=== PATIENT | female | born 1935 | race Caucasian/White ===

== ENCOUNTER 2016-11-28 07:50 | Day surgery (SDC) | payer OTHER ==
[2016-11-27 15:20] VITALS: BMI 24.7
[~2016-11-28 07:50] MED LIST: TOBRAMYCIN/DEXAMETHASONE OPHTH. OINTMENT 1 TUBE TP ONE
[2016-11-28] MEDS ORDERED: MOXIFLOXACIN HCL 0.5% OPHTHALMIC 3 ML BOTTLE ONE (08:18)
[2016-11-28] MEDS ORDERED: PHENYLEPHRINE 2.5% OPHTH SOLN 15 ML BOTTLE ONE (08:18)
[2016-11-28] MEDS ORDERED: CYCLOPENTOLATE HCL 1% OPHTH SOLN 2 ML BOTTLE ONE (08:18)
[2016-11-28 08:20] VITALS: TEMP 97.6
[2016-11-28] MEDS: TROPICAMIDE 1% OPHTH SOLN 15 ML BOTTLE OP SCH ×3 (08:25→08:40)
[2016-11-28] MEDS: MOXIFLOXACIN HCL 0.5% OPHTHALMIC 3 ML BOTTLE OP SCH ×3 (08:25→08:40)
[2016-11-28] MEDS: PHENYLEPHRINE 2.5% OPHTH SOLN 15 ML BOTTLE OP SCH ×3 (08:25→08:40)
[2016-11-28] MEDS: CYCLOPENTOLATE HCL 1% OPHTH SOLN 2 ML BOTTLE OP SCH ×3 (08:25→08:40)
[2016-11-28] MEDS ORDERED: TETRACAINE 0.5% OPHTH SOLN 2 ML BOTTLE OD ONE (09:04)
[2016-11-28] MEDS ORDERED: PROPOFOL 20 ML ONE (09:05)
[2016-11-28] MEDS ORDERED: BUPIVACAINE HCL/PF 0.75% 10 ML VIAL RB ONE (09:07)
[2016-11-28] MEDS ORDERED: LIDOCAINE HCL/PF 2% SDV 5ML VIAL INF ONE (09:07)
[2016-11-28] MEDS ORDERED: POVIDONE-IODINE 5% OPHTHALMIC PREP 30 ML SOLUTION OD ONE (09:10)
[2016-11-28] MEDS ORDERED: LIDOCAINE HCL 1% PRESERVATIVE FREE - 30ML VIAL IO ONE (09:17)
[2016-11-28] MEDS ORDERED: BSS (NA/CA/MG/K) BALANCED SALT SOLUTION OPHTH SOLN 15 ML BOTTLE OD ONE (09:17)
[2016-11-28] MEDS ORDERED: CHONDROITIN SU A/HYALUR SOD 1 KIT IO ONE (09:17)
[2016-11-28] MEDS ORDERED: EPINEPHrine/PF 1 MG/1 ML (1:1,000) AMPULE SQ ONE ×2 (09:23→09:39)
[2016-11-28] MEDS ORDERED: EPINEPHrine/PF 1 MG/1 ML (1:1,000) AMPULE ONE (09:37)
[2016-11-28] MEDS ORDERED: TOBRAMYCIN/DEXAMETHASONE OPHTH. OINTMENT 1 TUBE TP ONE (09:46)
[2016-11-28 11:08] VITALS: BP 139/71; PULSE 69
--- NOTE | 2016-11-28 16:57 | OP ---
DATE OF OPERATION: 11/28/2016 SURGEON: Mir Reynolds MD PREOPERATIVE DIAGNOSIS: Cataract, right eye. OPERATION: Phacoemulsification and intraocular lens implantation, right eye. POSTOPERATIVE DIAGNOSIS: Cataract, right eye. ANESTHESIA: Local with intravenous sedation. COMPLICATIONS: None. BLOOD LOSS: None. SPECIMEN: None. BRIEF HISTORY: The patient is an 80-year-old woman with a past medical history of diabetes, who presented with decreased vision in the right eye down to 20/200 due to a 3+ nuclear sclerotic lens with vacuoles. After the risks, benefits, and alternatives to cataract surgery were discussed with the patient, she consented to surgery for the right eye. DESCRIPTION OF PROCEDURE: The patient was brought to the operating room and administered a retrobulbar block after receiving intravenous sedation. She was then prepped and draped in the usual sterile fashion, and an eyelid speculum was inserted in the right eye. A paracentesis was made, and the anterior chamber was inflated with nonpreserved lidocaine. This was followed by injection of Viscoat. A groove was made in the temporal clear cornea which was tunneled forward with a crescent blade. The anterior chamber was entered with a 2.75 keratome. The cystotome was used to make an incision in the center of the capsule, and a continuous curvilinear capsulorrhexis was created. The lens was hydrodissected until it was found to rotate freely within the capsular bag. Phacoemulsification was then used to remove the lens in its entirety. Irrigation and aspiration were used to remove residual cortical material. The anterior chamber and capsular bag were re-inflated with Provisc, and a 23.0-diopter [id number] AcrySof intraocular lens was injected into the capsular bag using the Blandon injector. The lens was dialed into place using a Sinskey hook. Irrigation and aspiration were used to remove residual Viscoelastic. The wound was stromally hydrated until it was found to be watertight and the eye was at an appropriate pressure. The eyelid speculum was removed from the eye, and TobraDex ointment and a patch and shield were placed over the right eye. The patient was transferred to the recovery room in stable condition and will follow up tomorrow. Rody KYLE/[id number] MTDD
== END 2016-11-28 11:08 | disposition home or self-care (01) ==
LOC: JASU-SURG 07:50
PROVIDERS: ATTEND Ophthalmology
PROC: 08RJ3JZ Replacement of Right Lens with Synthetic Substitute, Percutaneous Approach (ICD-10-PCS; principal; 2016-11-28 09:00)
DX: H25.11 Age-related nuclear cataract, right eye (principal)

== ENCOUNTER 2016-12-20 15:32 | Emergency (ER) | payer OTHER ==
[2016-12-20 16:01] VITALS: BMI 27.1
--- NOTE | 2016-12-20 17:19 | PDOC ---
History of Present Illness - General Chief Complaint: Pain Stated Complaint: CHEST PAIN Time Seen by Provider: 12/20/16 17:18 Past History - Past Medical History Allergies/Adverse Reactions: Allergies Allergy/AdvReac Type Severity Reaction Status Date / Time No Known Drug Allergies Allergy Verified 11/28/16 08:22 Home Medications: Ambulatory Orders Lisinopril [Prinivil] 20 mg PO DAILY #0 tablet 06/20/12 Aspirin [ASA -] 81 mg PO DAILY 05/06/14 Paroxetine HCl [Paxil -] 10 mg PO DAILY 01/17/15 Levetiracetam [Keppra -] 500 mg PO BID #60 tablet 01/20/15 Metoprolol Tartrate 25 mg PO DAILY 12/12/15 Calcium 500Mg/Vit-D 200 Units [Os-Ramin 500+D -] 1 tab PO BID tab 12/15/15 Loratadine [Claritin -] 10 mg PO DAILY tablet 12/15/15 Methimazole [Tapazole -] 5 mg PO DAILY 11/28/16 Sitagliptin Phos/Metformin HCl [Janumet 50-500 mg Tablet] 1 each PO BID Anemia: No Asthma: No Cardiac Disorders: No CVA: No COPD: No CHF: No Dementia: Yes Diabetes: Yes (pre) GI Disorders: No Disorders: No HTN: Yes Hypercholesterolemia: No Liver Disease: No Seizures: Yes (, 5 YEARS AGO) Thyroid Disease: No - Surgical History Abdominal Surgery: Yes Appendectomy: Yes Cardiac Surgery: No Cholecystectomy: No Lung Surgery: No Neurologic Surgery: No Orthopedic Surgery: No - Psycho/Social/Smoking Cessation Hx Anxiety: No Suicidal Ideation: No Smoking Status: No Smoking History: Never smoked Have you smoked in the past 12 months: No Number of Cigarettes Smoked Daily: 0 Cigars Per Day: 0 Information on smoking cessation initiated: No Hx Alcohol Use: No Drug/Substance Use Hx: No Substance Use Type: None Hx Substance Use Treatment: No *Physical Exam - Vital Signs Last Vital Signs Temp Pulse Resp BP Pulse Ox 98.4 F 71 20 133/81 96 12/20/16 16:04 12/20/16 15:59 12/20/16 15:59 12/20/16 15:59 12/20/16 15:59
[2016-12-20] MEDS ORDERED: SUCRALFATE 1 GM TABLET (FP) PO ONE (17:33)
[2016-12-20] MEDS ORDERED: FAMOTIDINE 20 MG/50 ML IVPB 50 ML IVPB ONE ×2 (17:33→18:05)
[2016-12-20] MEDS ORDERED: SODIUM CHLORIDE 500 ML IV STA (17:33)
[2016-12-20] MEDS ORDERED: MAG HYDROX/AL HYDROX/SIMETH 30 ML UNIT-DOSE CUP PO ONE (17:33)
--- NOTE | 2016-12-20 17:59 | PDOC ---
History of Present Illness - General Chief Complaint: Pain Stated Complaint: CHEST PAIN Time Seen by Provider: 12/20/16 17:18 History Source: Patient, Family - History of Present Illness Timing/Duration: reports: intermittent Abdominal Pain Onset Location: reports: epigastric Past History - Past Medical History Allergies/Adverse Reactions: Allergies Allergy/AdvReac Type Severity Reaction Status Date / Time No Known Drug Allergies Allergy Verified 11/28/16 08:22 Home Medications: Ambulatory Orders Lisinopril [Prinivil] 20 mg PO DAILY #0 tablet 06/20/12 Aspirin [ASA -] 81 mg PO DAILY 05/06/14 Paroxetine HCl [Paxil -] 10 mg PO DAILY 01/17/15 Levetiracetam [Keppra -] 500 mg PO BID #60 tablet 01/20/15 Metoprolol Tartrate 25 mg PO DAILY 12/12/15 Calcium 500Mg/Vit-D 200 Units [Os-Ramin 500+D -] 1 tab PO BID tab 12/15/15 Loratadine [Claritin -] 10 mg PO DAILY tablet 12/15/15 Methimazole [Tapazole -] 5 mg PO DAILY 11/28/16 Sitagliptin Phos/Metformin HCl [Janumet 50-500 mg Tablet] 1 each PO BID Anemia: No Asthma: No Cardiac Disorders: No CVA: No COPD: No CHF: No Dementia: Yes Diabetes: Yes (pre) GI Disorders: No Disorders: No HTN: Yes Hypercholesterolemia: No Liver Disease: No Seizures: Yes (, 5 YEARS AGO) Thyroid Disease: No - Surgical History Abdominal Surgery: Yes Appendectomy: Yes Cardiac Surgery: No Cholecystectomy: No Lung Surgery: No Neurologic Surgery: No Orthopedic Surgery: No - Psycho/Social/Smoking Cessation Hx Anxiety: No Suicidal Ideation: No Smoking Status: No Smoking History: Never smoked Have you smoked in the past 12 months: No Number of Cigarettes Smoked Daily: 0 Cigars Per Day: 0 Information on smoking cessation initiated: No Hx Alcohol Use: No Drug/Substance Use Hx: No Substance Use Type: None Hx Substance Use Treatment: No Review of Systems - Review of Systems Constitutional: No: Chills, Fever Respiratory: No: Cough, Shortness of Breath Cardiac (ROS): No: Lightheadedness, Palpitations ABD/GI: No: Constipated, Diarrhea, Nausea, Rectal Bleeding, Vomiting, Tarry Stools : No: Dysuria *Physical Exam - Vital Signs Last Vital Signs Temp Pulse Resp BP Pulse Ox 98.4 F 71 20 133/81 96 12/20/16 16:04 12/20/16 15:59 12/20/16 15:59 12/20/16 15:59 12/20/16 15:59 - Physical Exam General Appearance: Yes: Appropriately Dressed. No: Apparent Distress HEENT: positive: Normal Voice Neck: positive: Supple Respiratory/Chest: positive: Lungs Clear, Normal Breath Sounds. negative: Respiratory Distress Cardiovascular: positive: Regular Rate, S1, S2 Gastrointestinal/Abdominal: positive: Normal Bowel Sounds, Soft. negative: Tender, Distended, Guarding, Rebound Musculoskeletal: negative: CVA Tenderness Extremity: positive: Normal Inspection Integumentary: positive: Dry, Warm Neurologic: positive: Fully Oriented, Alert, Normal Mood/Affect Heart Score/ECG Review - ECG Intrepretation Comment:: 12/20/16 18:39 Twelve-lead EKG was performed and reviewed by me. There is normal sinus rhythm with a normal rate. The axis is normal. The intervals are normal. There are no ST or T wave abnormalities. Impression: Normal twelve-lead EKG ED Treatment Course - LABORATORY CBC & Chemistry Diagram: 12/20/16 18:10 12/20/16 18:10 - RADIOLOGY Radiology Studies Ordered: Category Date Time Status CHEST X-RAY PORTABLE* [RAD] Stat Radiology 12/20/16 17:32 Ordered Medical Decision Making - Medical Decision Making 12/20/16 17:55 81-year-old female, history of seizures, hypertension, diabetes, gastritis and ulcer, brought in by family for abdominal pain. Patient reports intermittent upper abdominal pain radiating to substernal area and possibly to throat x several days, worse with po intake. Denies shortness of breath, diaphoresis, nausea or vomiting. No acute change in bowel movements, melena, bright red blood per rectum, or dysuria. Family states patient is possibly on medication for her GERD, but does not remember name but states pt usually takes all her meds See exam Possibly gastritis given a/w food, not great story for ACS, less likely dissection or PE -GI cocktail -ekg -cxr -labs -reassess 12/20/16 17:58 12/20/16 18:39 12/20/16 18:39 Signed out to JORDEN Austin pending labs and reassessment *DC/Admit/Observation/Transfer Diagnosis at time of Disposition: Gastritis - Discharge Dispostion Disposition: HOME Condition at time of disposition: Stable - Referrals Referrals: Justo Candelario [Primary Care Provider] - Chi Padilla MD [Staff Physician] - - Patient Instructions Printed Discharge Instructions: Gastritis Additional Instructions: Please follow up with your physician and the Financial Services Counselor listed on your discharge Dr. Padilla. Return to the ER for severe/persistent/worsening symptoms Print Language: LAO
[2016-12-20] MEDS ORDERED: SUCRALFATE 1 GM TABLET (FP) ONE (18:04)
[2016-12-20] MEDS ORDERED: MAG HYDROX/AL HYDROX/SIMETH 30 ML UNIT-DOSE CUP ONE (18:08)
[2016-12-20 18:25] LABS: BASOPHIL 0.7 % (0-2.0); MCH 28.8 pg (25.7-33.7); MCHC 33.7 g/dl (32.0-36.0); MEAN CELL VOLUME 85.7 fl (80-96); MEAN PLT VOLUME 8.4 fl (7.5-11.1); NEUTROPHILS 54.5 % (42.8-82.8); PLATELET COUNT 191 K/MM3 (134-434); RDW 15.1 % (11.6-15.6); WHITE BLOOD COUNT 8.3 K/mm3 (4.0-10.0)
[2016-12-20 18:43] LABS: URINE APPEARANCE CLEAR; URINE BILIRUBIN NEGATIVE (NEGATIVE); URINE BLOOD NEGATIVE (NEGATIVE); URINE COLOR STRAW; URINE GLUCOSE (UA) NEGATIVE (NEGATIVE); URINE KETONE NEGATIVE (NEGATIVE); URINE LEUK ESTERASE NEGATIVE (NEGATIVE); URINE NITRITE NEGATIVE (NEGATIVE); URINE PROTEIN NEGATIVE (NEGATIVE); URINE UROBILINOGEN NEGATIVE mg/dL (0.2-1.0)
[2016-12-20 19:19] LABS: ALBUMIN 3.6 g/dl (3.4-5.0); ANION GAP 7 (8-16); CO2 26 mmol/L (21-32); GLUCOSE,RANDOM 76 mg/dL (74-106)
[2016-12-20 19:22] LABS: BILIRUBIN,TOTAL 0.2 mg/dL (0.2-1.0); CREATININE 0.8 mg/dL (0.55-1.02); SGPT/ALT 42 U/L (12-78); TOT PROT 7.3 g/dl (6.4-8.2)
[2016-12-20 19:23] LABS: ALK PHOS 135 U/L (45-117); CPK 165 IU/L (26-192)
[2016-12-20 19:24] LABS: SGOT/AST 43 U/L (15-37)
[2016-12-20 19:25] LABS: TROPONIN I < 0.02 ng/ml (0.00-0.05)
--- NOTE | 2016-12-20 20:10 | PDOC ---
*Physical Exam - Vital Signs Last Vital Signs Temp Pulse Resp BP Pulse Ox 98.4 F 71 20 133/81 96 12/20/16 16:04 12/20/16 15:59 12/20/16 15:59 12/20/16 15:59 12/20/16 15:59 ED Treatment Course - LABORATORY CBC & Chemistry Diagram: 12/20/16 18:10 12/20/16 18:10 - ADDITIONAL ORDERS Additional order review: Laboratory Results 12/20/16 12/20/16 18:28 18:10 Sodium 135 L Potassium 4.6 Chloride 102 Carbon Dioxide 26 Anion Gap 7 L BUN 16 D Creatinine 0.8 Creat Clearance w eGFR > 60 Random Glucose 76 D Calcium 9.0 Total Bilirubin 0.2 D AST 43 H ALT 42 D Alkaline Phosphatase 135 H Creatine Kinase 165 Creatine Kinase Index 1.3 CK-MB (CK-2) 2.233 Troponin I < 0.02 Total Protein 7.3 Albumin 3.6 Lipase 296 Urine Color Straw Urine Appearance Clear Urine pH 6.0 Urine Protein Negative Urine Glucose (UA) Negative Urine Ketones Negative Urine Blood Negative Urine Nitrite Negative Urine Bilirubin Negative Urine Urobilinogen Negative 12/20/16 18:10 RBC 3.96 MCV 85.7 MCHC 33.7 RDW 15.1 MPV 8.4 Neutrophils % 54.5 Lymphocytes % 31.1 Monocytes % 10.7 H Eosinophils % 3.0 Basophils % 0.7 - Medications Given in the ED: ED Medications Discontinued Medications Generic Name Dose Route Start Last Admin Trade Name Freq PRN Reason Stop Dose Admin Al Hydroxide/Mg Hydroxide 30 ml 12/20/16 17:33 12/20/16 18:18 Mylanta Oral Suspension - PO 12/20/16 17:34 30 ml ONCE ONE Administration Famotidine/Sodium Chloride 50 mls @ 100 mls/hr 12/20/16 17:33 12/20/16 18:19 Pepcid 20 Mg Premixed Ivpb - IVPB 12/20/16 18:02 100 mls/hr ONCE ONE Administration Sodium Chloride 500 mls @ 1,000 mls/hr 12/20/16 17:33 12/20/16 18:18 Normal Saline - IV 12/20/16 18:02 1,000 mls/hr ASDIR STA Administration Sucralfate 1 gm 12/20/16 17:33 12/20/16 18:18 Carafate - PO 12/20/16 17:34 1 gm ONCE ONE Administration Progress Note - Progress Note Progress Note: 2001hrs: Pt states she feels better and wishes to be d/c. Translation via family. *DC/Admit/Observation/Transfer Diagnosis at time of Disposition: Gastritis Qualifiers: Gastritis type: other gastritis Chronicity: unspecified Gastritis bleeding: without bleeding Qualified Code(s): K29.60 - Other gastritis without bleeding - Discharge Dispostion Disposition: HOME Condition at time of disposition: Stable Admit: No - Referrals Referrals: Justo Candelario [Primary Care Provider] - Chi Padilla MD [Staff Physician] - - Patient Instructions Printed Discharge Instructions: Gastritis Additional Instructions: Please follow up with your physician and the Special Equipment Technician listed on your discharge Dr. Padilla. Return to the ER for severe/persistent/worsening symptoms Print Language: HAITIAN
[2016-12-20 20:23] VITALS: BP 142/82; PULSE 85; TEMP 98.1
--- NOTE | 2016-12-21 13:15 | EKG ---
Test Reason : Blood Pressure : / mmHG Vent. Rate : 070 BPM Atrial Rate : 070 BPM P-R Int : 156 ms QRS Dur : 074 ms QT Int : 406 ms P-R-T Axes : 046 -07 003 degrees QTc Int : 438 ms NORMAL SINUS RHYTHM MINIMAL VOLTAGE CRITERIA FOR LVH, MAY BE NORMAL VARIANT NONSPECIFIC T WAVE ABNORMALITY ABNORMAL ECG WHEN COMPARED WITH ECG OF 17-JAN-2015 19:21, NONSPECIFIC T WAVE ABNORMALITY NO LONGER EVIDENT IN LATERAL LEADS Confirmed by INDER POLLACK MD ([id number]) on 12/21/2016 1:15:14 PM Referred By: Confirmed By:INDER POLLACK MD
== END 2016-12-20 20:24 | disposition home or self-care (01) ==
LOC: JER 15:32
PROC: 3E033GC Introduction of Other Therapeutic Substance into Peripheral Vein, Percutaneous Approach (ICD-10-PCS; principal; 2016-12-20)
DX: K29.60 Other gastritis without bleeding (principal); I10 Essential (primary) hypertension; E11.9 Type 2 diabetes mellitus without complications; Z86.69 Personal history of other diseases of the nervous system and sense organs
CPT/HCPCS: 36415; 71010-TC; 80053; 81003; 82553; 83690; 84484; 85025; 93005; 93010; 99282-25

== ENCOUNTER 2019-03-08 10:29 | Emergency (ER) | payer OTHER ==
[2019-03-08 11:20] VITALS: TEMP 97.5; BMI 27.3
--- NOTE | 2019-03-08 11:35 | PDOC ---
History of Present Illness - General Chief Complaint: Back Pain Stated Complaint: LOWER BACK AND HIP PAIN Time Seen by Provider: 03/08/19 11:29 - History of Present Illness Initial Comments: 03/08/19 11:35 HPI: 83 y/o F with hx of epilepsy, HTN, DM, gastritis, OA presenting with chronic low back pain. She states her pain has been present for as long as she can recall but she felt it was stronger in the past few days. Pain is 10/10 currently but she reports "it always feels strong." Pain is worse with movement. Pain is improved with menthol patches and tylenol. She reports only taking 500mg tylenol QD, and states she never took more because her primary doctor didnt tell her to. She states having extensive workup for her back pain and hip before with no concerning findings in the past. She denies fever, chills , chest pain, SOB, abd pain, n/v, trauma, weakness, falls, seizures, dysuria. PMHx: as noted above ROS: as noted SHx: Denies tobacco use; no alcohol use; no rec drugs Allergies: NKDA ROS: GENERAL/CONSTITUTIONAL: No fever or chills. No weakness. HEAD, EYES, EARS, NOSE AND THROAT: No change in vision. No ear pain or discharge. No sore throat. CARDIOVASCULAR: No chest pain or shortness of breath RESPIRATORY: No cough, wheezing, or hemoptysis. GASTROINTESTINAL: No nausea, vomiting, diarrhea or constipation. GENITOURINARY: No dysuria, frequency, or change in urination. MUSCULOSKELETAL: +back pain. SKIN: No rash NEUROLOGIC: No headache, vertigo, loss of consciousness, or change in strength/ sensation. ENDOCRINE: No increased thirst. No abnormal weight change HEMATOLOGIC/LYMPHATIC: No anemia, easy bleeding, or history of blood clots. ALLERGIC/IMMUNOLOGIC: No hives or skin allergy. PE: GENERAL: Awake, alert, and fully oriented, no acute distress HEAD: No signs of trauma, normocephalic, atraumatic EYES: EOMI, sclera anicteric, conjunctiva clear ENT: Auricles normal inspection, hearing grossly normal, nares patent, oropharynx clear without exudates. Moist mucosa NECK: Normal ROM, no lymphadenopathy LUNGS: No increased work of breathing, symmetrical chest rise, clear to auscultation bilaterally, no wheezes, crackles or rhonchi HEART: Regular rate and rhythm, normal S1 and S2, no murmurs, peripheral pulses 2+ and equal bilaterally. ABDOMEN: Soft, nondistended, nontender, normoactive bowel sounds. No guarding, no rebound. No masses. No CVAT EXTREMITIES: Normal inspection, Normal range of motion, no edema. No clubbing or cyanosis. BACK: no midline ttp/stepoffs/deformities, no rashes or skin changes, left lumbar ttp NEUROLOGICAL: Cranial nerves II through XII grossly intact. Normal speech, normal gait, no focal sensorimotor deficits SKIN: Warm, Dry, normal turgor, no rashes or lesions noted Past History - Past Medical History Allergies/Adverse Reactions: Allergies Allergy/AdvReac Type Severity Reaction Status Date / Time No Known Drug Allergies Allergy Verified 03/08/19 11:20 Home Medications: Ambulatory Orders Aspirin [ASA -] 81 mg PO DAILY 05/06/14 Paroxetine HCl [Paxil -] 10 mg PO DAILY 01/17/15 levETIRAcetam [Keppra -] 500 mg PO BID #60 tablet 01/20/15 Methimazole [Tapazole -] 5 mg PO DAILY 11/28/16 Sitagliptin Phos/Metformin HCl [Janumet 50-500 mg Tablet] 1 each PO BID Calcium Carbonate [Calcium] 500 mg PO DAILY 03/08/19 Cyclobenzaprine HCl [Flexeril 10 mg] 10 mg PO BID PRN #10 tablet 03/08/19 Empagliflozin [Jardiance] 10 mg PO DAILY 03/08/19 Gabapentin [Neurontin] 100 mg PO DAILY 03/08/19 Losartan Potassium 100 mg PO DAILY 03/08/19 Metoprolol Succinate [Toprol Xl] 50 mg PO DAILY 03/08/19 Ranitidine HCl [Zantac] 150 mg PO DAILY 03/08/19 Anemia: No Asthma: No Cardiac Disorders: No CVA: No COPD: No CHF: No Dementia: Yes Diabetes: Yes (pre) GI Disorders: No Disorders: No HTN: Yes Hypercholesterolemia: No Liver Disease: No Seizures: Yes (, 5 YEARS AGO) Thyroid Disease: No - Surgical History Abdominal Surgery: Yes Appendectomy: Yes Cardiac Surgery: No Cholecystectomy: No Lung Surgery: No Neurologic Surgery: No Orthopedic Surgery: No - Psycho Social/Smoking Cessation Hx Smoking Status: No Smoking History: Unknown if ever smoked Have you smoked in the past 12 months: No Number of Cigarettes Smoked Daily: 0 Cigars Per Day: 0 Information on smoking cessation initiated: No Hx Alcohol Use: No Drug/Substance Use Hx: No Substance Use Type: None Hx Substance Use Treatment: No *Physical Exam - Vital Signs Last Vital Signs Temp Pulse Resp BP Pulse Ox 97.5 F L 65 16 148/51 L 100 03/08/19 10:30 03/08/19 10:30 03/08/19 10:30 03/08/19 10:30 03/08/19 10:30 Medical Decision Making - Medical Decision Making 03/08/19 14:45 83 y/o F with hx of epilepsy, HTN, DM, gastritis, OA presenting with chronic low back pain with radiation to the left hip that has been worsening with no red flag findings. VSS, AF. PE with left lumbar ttp. -tylenol -left hip XR 03/08/19 15:58 XR negative Will DC patient with recs for adequate pain control and PCP followup Discharge - Discharge Information Problems reviewed: Yes Clinical Impression/Diagnosis: Back pain Qualifiers: Back pain location: low back pain Chronicity: chronic Back pain laterality: left Sciatica presence: without sciatica Qualified Code(s): M54.5 - Low back pain - Additional Discharge Information Prescriptions: Cyclobenzaprine HCl [Flexeril 10 mg] 10 mg PO BID PRN #10 tablet PRN Reason: Back Pain - Follow up/Referral Referrals: Justo Candelario [Primary Care Provider] - - Patient Discharge Instructions Patient Printed Discharge Instructions: DI for Low Back Pain Additional Instructions: Return to the ER if there is concern for new or worsening symptoms including worse pain, fainting, numbness or tingling changes Please followup with your PCP this week for further evaluation Please take tylenol 650mg every 6-8hours as needed for pain control. You may purchase lidoderm 4% transdermal patches from the pharmacy. I have sent flexeril to your pharmacy; please take this medication twice a day. Regrese a la roland de emergencias si le preocupan los sntomas nuevos o que empeoran, trudy dolor, desmayos, entumecimiento u hormigueo. Jesus un seguimiento con [facility] PCP esta semana para misty evaluacin adicional. [place] tylenol 650mg cada 6-8 horas segn sea necesario para controlar el dolor. Puede comprar parches transdrmicos con 4% de lidoderm en la farmacia. He enviado flexeril a [facility] farmacia; Por favor tome deloris medicamento dos veces al da. Print Language: VIETNAMESE - Post Discharge Activity
[2019-03-08] MEDS ORDERED: ACETAMINOPHEN 500 MG TABLET (FP) PO ONE (12:44)
--- NOTE | 2019-03-08 13:23 | PDOC ---
Attending Attestation - Resident Resident Name: Kandy Abraham - ED Attending Attestation I have performed the following: I have examined & evaluated the patient, The case was reviewed & discussed with the resident, I agree w/resident's findings & plan - HPI HPI: 03/08/19 14:05 83 y/o F with hx of epilepsy, HTN, DM, gastritis, OA presenting with acute on chronic low back pain. no trauma. has been chronic x "long time," but worse over few days. 10/10 pain, worse with movement. improved with methol patches and tylenol She states having extensive workup for her back pain and hip before with no concerning findings in the past. She denies fever, chills, chest pain, SOB, abd pain, n/v, trauma, weakness, falls, seizures, abdominal pain/urinary sx., dysuria. 03/08/19 16:25 - Physicial Exam PE: 03/08/19 14:06 General: NAD, well appearing Abdomen: soft, no tenderness, nondistended Vascular: 2+ DP pulses symmetric and equal. Back: no midline tenderness, no stepoffs, FROM +left paralumbar and buttock TTP. MSK: notable for soft compartments, Cap refill <2 sec. Proximal and distal strength 5/5, educational administration teacher strength 5/5 - equal and symmetric. Plantar flexion and dorsiflexion 5/5. FROM. Sensation grossly intact to light touch. neg SLR bilaterally. pelvis stable Neuro: alert, no focal neurologic deficits Skin: color normal color, warm and well perfused. Cap refill <2 sec. Lower Extremity: soft compartment. no calf tenderness. 5/5 plantar and dorsiflexion. SILT. no laxity at knee jt. 2+ DP pulses bilaterally. 03/08/19 16:25 - Medical Decision Making 03/08/19 13:22 Vital Signs Temp Pulse Resp BP Pulse Ox 97.5 F L 65 16 148/51 L 100 03/08/19 10:30 03/08/19 10:30 03/08/19 10:30 03/08/19 10:30 03/08/19 10:30 VS reviewed, wnl DDx back pain: back strain, lumbago, sciatica, radiculopathy, spinal stenosis. Muscle spasm. Lumbar radiculopathy. Clinically doubt based on exam and clinical history: cord compression or cauda equina, with low suspicion and NO red flag sx such as malignancy, weight loss, trauma, fevers, IVDU, lumbar/spinal procedures, bowel and bladder incontinence/ retention, urinary sx, neurologic deficits or changes. no trauma. No risk factors or findings concerning for epidural abscess, discitis, vertebral osteomyelitis, cord compression, cauda equina, vertebral fracture or bone malignancy, AAA, or pyelonephritis. no urinary sx to suggest infection. Prior MRI in 2019 will L4-L5 severe spinal stenosis and degenerative changes moderate narrowing of the formula. L4-L3 with mild stenosis due to single disc and moderate degenerative changes. Old compression fracture T11 Xray left hip normal joint space alignment, no acute fx or dislocation. + degenerative changes. The patient presents with acute onset of back pain after tylenol, lido patch, flexeril. Clinically this patient can be ruled out for serious pathology given there is a completely normal neurological exam, no history of IV drug use, and no history of bowel or bladder incontinence, no perianal numbness/tingling, no constipation or urinary retention. Once the patients pain was adequately controlled, the patient was able to ambulate and be discharged in stable condition with anticipatory guidance provided. Can ambulate as tolerated, no heavy lifting, range of motion exercises encouraged. Rx meds, side effects reviewed, prn for analgesia/spasms. Patient instructed to consider further imaging and workup through their primary care physician as an outpatient if symptoms persist. 03/08/19 16:24 03/08/19 16:26 Heart Score/ECG Review #1 ECG reviewed & interpreted by me at: 11:00 General ECG Interpretation: Sinus Rhythm, Normal Rate, Normal Intervals Compared to previous ECG there are: No significant change 03/08/19 13:23 EKG normal sinus rhythm at 65 bpm, no interval abnormalities, narrow QRS, ST and T wave segments and morphology normal. Nonspecific T wave abnormalities
[2019-03-08] MEDS ORDERED: ACETAMINOPHEN 325 MG TABLET (FP) ONE (13:28)
[2019-03-08] MEDS ORDERED: LIDOCAINE 5% TOPICAL PATCH TP ONE (13:29)
[2019-03-08] MEDS ORDERED: LIDOCAINE 5% TOPICAL PATCH ONE (13:37)
[2019-03-08] MEDS ORDERED: CYCLOBENZAPRINE HCL 5 MG TABLET PO ONE (15:03)
[2019-03-08] MEDS ORDERED: CYCLOBENZAPRINE HCL 10 MG TABLET (FP) ONE (15:59)
[2019-03-08 17:04] VITALS: BP 144/79; PULSE 66
[2019-03-08] MEDS ORDERED: LIDOCAINE PATCH REMOVAL MC SCH (22:00)
--- NOTE | 2019-03-10 10:59 | EKG ---
Test Reason : Blood Pressure : / mmHG Vent. Rate : 065 BPM Atrial Rate : 065 BPM P-R Int : 000 ms QRS Dur : 070 ms QT Int : 390 ms P-R-T Axes : 000 -29 -33 degrees QTc Int : 405 ms LIKELY SINUS RHYTHM WITH OCCASIONAL PREMATURE VENTRICULAR COMPLEXES MINIMAL VOLTAGE CRITERIA FOR LVH, MAY BE NORMAL VARIANT NONSPECIFIC T WAVE ABNORMALITY ABNORMAL ECG WHEN COMPARED WITH ECG OF 20-DEC-2016 15:54, T WAVE VARIATION VENTRICULAR ECTOPY IS SEEN Confirmed by LV MAGAÑA MD [id number]) on 03/10/2019 10:59:21 AM Referred By: Confirmed By:LV MAGAÑA MD
== END 2019-03-08 17:03 | disposition home or self-care (01) ==
LOC: JER 10:29
DX: M54.5 Low back pain (principal); I10 Essential (primary) hypertension; E11.9 Type 2 diabetes mellitus without complications; Z79.84 Long term (current) use of oral hypoglycemic drugs; E78.00 Pure hypercholesterolemia, unspecified; G40.909 Epilepsy, unspecified, not intractable, without status epilepticus; M19.90 Unspecified osteoarthritis, unspecified site; Z87.19 Personal history of other diseases of the digestive system
CPT/HCPCS: 73502-TC-LT-FY; 93005; 93010; 99282-25

== ENCOUNTER 2019-11-15 21:13 | Emergency (ER) | payer OTHER ==
[2019-11-15 21:17] VITALS: TEMP 97.6; BMI 25.5
[2019-11-15] MEDS ORDERED: LIDOCAINE PATCH REMOVAL MC SCH (22:00)
[2019-11-15] MEDS ORDERED: LIDOCAINE 5% TOPICAL PATCH TP ONE (22:07)
--- NOTE | 2019-11-15 22:11 | PDOC ---
History of Present Illness - General Chief Complaint: Injury Stated Complaint: FALL Time Seen by Provider: 11/15/19 21:46 - History of Present Illness Initial Comments: 83 yo female with PMH of epilepsy, HTN, HLD, DM brought in by EMS after an unwitnessed fall. Pt says she was getting up to go to her walker when she fell. She hit her head and endorses pain in her left hand, both shoulders, left hip and lumbar region. She denies loss of consciousness. At baseline, she is able to ambulate using a walker. She lives at home by herself. She denies fevers, chills, nvd, cp, sob, abd pain. Daughter-in law would like to get assistance for taking care of her. History is obtained by her daughter in law. Sandy Past History - Medical History Allergies/Adverse Reactions: Allergies Allergy/AdvReac Type Severity Reaction Status Date / Time No Known Drug Allergies Allergy Verified 11/15/19 21:14 Home Medications: Ambulatory Orders Aspirin [ASA -] 81 mg PO DAILY 05/06/14 Paroxetine HCl [Paxil -] 10 mg PO DAILY 01/17/15 levETIRAcetam [Keppra -] 500 mg PO BID #60 tablet 01/20/15 Methimazole [Tapazole -] 5 mg PO DAILY 11/28/16 Sitagliptin Phos/Metformin HCl [Janumet 50-500 mg Tablet] 1 each PO BID 11/28/16 Calcium Carbonate [Calcium] 500 mg PO DAILY 03/08/19 Cyclobenzaprine HCl [Flexeril 10 mg] 10 mg PO BID PRN #10 tablet 03/08/19 Empagliflozin [Jardiance] 10 mg PO DAILY 03/08/19 Gabapentin [Neurontin] 100 mg PO DAILY 03/08/19 Losartan Potassium 100 mg PO DAILY 03/08/19 Metoprolol Succinate [Toprol Xl] 50 mg PO DAILY 03/08/19 Ranitidine HCl [Zantac] 150 mg PO DAILY 03/08/19 Acetaminophen [Tylenol .Regular Strength -] 650 mg PO Q4H PRN tablet 11/10/19 Amoxicillin - [Amoxicillin 500mg Capsule -] 500 mg PO TID #12 capsule 11/10/19 Amoxicillin - [Amoxicillin 500mg Capsule -] 500 mg PO TID #12 capsule 11/10/19 Lactobacillus Acidophilus [Acidophilus Lactobacilli] 1 each PO DAILY #30 capsule 11/10/19 Lactobacillus Acidophilus [Bacid -] 1 tab PO DAILY #30 tab 11/10/19 Losartan Potassium [Cozaar -] 100 mg PO DAILY #0 tablet 11/10/19 Polyethylene Glycol 3350 [Miralax (For Daily Use) -] 17 gm PO DAILY #1 bottle 11/10/19 Polyethylene Glycol 3350 [Miralax 119 gm Btl -] 17 gm PO DAILY #1 bottle 11/10/19 Simethicone [Gas Relief] 125 mg PO QID PRN #120 capsule 11/10/19 Simethicone [Mylicon -] 80 mg PO QID PRN #120 tab.chew 11/10/19 Anemia: No Asthma: No Cardiac Disorders: No CVA: No COPD: No CHF: No Dementia: Yes Diabetes: Yes (pre) GI Disorders: No Disorders: No HTN: Yes Hypercholesterolemia: No Liver Disease: No Seizures: Yes (, 5 YEARS AGO) Thyroid Disease: No - Surgical History Abdominal Surgery: Yes Appendectomy: Yes Cardiac Surgery: No Cholecystectomy: No Lung Surgery: No Neurologic Surgery: No Orthopedic Surgery: No - Reproductive History Is Patient Now?: No - Psycho-Social/Smoking History Smoking Status: No Smoking History: Never smoked Have you smoked in the past 12 months: No Number of Cigarettes Smoked Daily: 0 Cigars Per Day: 0 Information on smoking cessation initiated: No - Substance Abuse Hx (Audit-C & DAST Scrn) How often the patient has a drink containing alcohol: Never Score: In Men: 4 or > Positive; In Women: 3 or > Positive: 0 Screen Result (Pos requires Nsg. Audit-10AR): Negative In the last yr the pt used illegal drug/Rx for NonMed reason: No Score: Yes response is considered Positive: 0 Screen Result (Positive result requires Nsg. DAST-10): Negative Review of Systems - Review of Systems Able to Perform ROS?: Yes Constitutional: No: Chills, Fever HEENTM: No: Recent change in vision, Double Vision Respiratory: No: Cough, Shortness of Breath Cardiac (ROS): No: Chest Pain, Palpitations ABD/GI: No: Diarrhea, Nausea, Vomiting : No: Burning, Dysuria Musculoskeletal: Yes: Other (pain in left hand and back) Integumentary: No: Dryness, Erythema, Lesions Neurological: No: Headache, Ataxia Psychiatric: No: Anxiety, Depression, Mood Swings Endocrine: No: Intolerance to Cold, Intolerance to Heat *Physical Exam - Vital Signs Last Vital Signs Temp Pulse Resp BP Pulse Ox 97.6 F 88 20 126/68 98 11/15/19 21:15 11/15/19 21:15 11/15/19 21:15 11/15/19 21:15 11/15/19 21:15 - Physical Exam General Appearance: Yes: Appropriately Dressed. No: Apparent Distress HEENT: positive: EOMI, Normal Voice Neck: negative: Tender, Rigid Respiratory/Chest: positive: Lungs Clear, Normal Breath Sounds. negative: Respiratory Distress Cardiovascular: positive: Regular Rhythm, Regular Rate, S1, S2 Gastrointestinal/Abdominal: positive: Flat, Soft. negative: Tender Musculoskeletal: positive: Normal Inspection. negative: CVA Tenderness Extremity: positive: Other (strength and sensation normal bilaterally. Pain with opening/closing left hand. midline and paraspinal tenderness along thoraicic and lumbar spine. 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 CT head & cervical Xray thoracic & lumbar & left hand Pt signed out to night team Discharge - Discharge Information Problems reviewed: Yes Clinical Impression/Diagnosis: Fall Condition: Stable Disposition: HOME - Follow up/Referral Referrals: Justo Candelario [Primary Care Provider] - - Patient Discharge Instructions - Post Discharge Activity
[2019-11-15] MEDS ORDERED: LIDOCAINE 5% TOPICAL PATCH ONE (22:33)
--- NOTE | 2019-11-16 00:40 | PDOC ---
*Physical Exam - Vital Signs Last Vital Signs Temp Pulse Resp BP Pulse Ox 97.6 F 88 20 126/68 98 11/15/19 21:15 11/15/19 21:15 11/15/19 21:15 11/15/19 21:15 11/15/19 21:15 - Physical Exam 11/16/19 01:26 General Appearance: Yes: Appropriately Dressed. No: Apparent Distress HEENT: positive: EOMI, Normal Voice Neck: negative: Tender, Rigid Respiratory/Chest: positive: Lungs Clear, Normal Breath Sounds. negative: Respiratory Distress Cardiovascular: positive: Regular Rhythm, Regular Rate, S1, S2 Gastrointestinal/Abdominal: positive: Flat, Soft. negative: Tender Musculoskeletal: positive: Normal Inspection. negative: CVA Tenderness Extremity: positive: Other (strength and sensation normal bilaterally. Pain with opening/closing left hand. midline and paraspinal tenderness along thoraicic and lumbar spine. 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 Sandhu. Pt 83 yo female with fall. Pt will get imaging and if negative discharge home call daughter. 11/16/19 00:58 Pt thoracic and lumbar xray show no fracture. Will wait for CT scan of neck and head. 11/16/19 02:18 CT scan were negative. Called daughter made aware of situation will come picker machine operator daughter. Son picked up mother was made aware of imaging and follow up instructions. Discharge - Discharge Information Problems reviewed: Yes Clinical Impression/Diagnosis: Fall Condition: Stable Disposition: HOME - Follow up/Referral Referrals: Justo Candelario [Primary Care Provider] - - Patient Discharge Instructions Patient Printed Discharge Instructions: How to Prevent Falls Additional Instructions: You came to ED for a fall. At the ED we took images of your entire back and head. All the images came back negative for any bleeds or fractures. For pain we gave you tylenol and lidocaine patch. If you have any recurring pain please take tylenol 325mg-1000mg every 6 hours for pain NO more than 4000mg for 24 hours Your workup is not complete without following up with PCP IF you have any of the following please return to the ED: - worsening headache - nausea vomiting and unable to tolerate PO - weakness in one limb - chest pain or shortness of breath If you have any emergent symptoms please call for medical help right away. Viniste a urgencias por misty cada. En el servicio de urgencias tomamos imgenes de toda lorenz espalda y karen. Todas las imgenes resultaron negativas por cualquier sangrado o fractura. Para el dolor, le dimos un parche de tylenol y lidocana. Si tiene algn dolor recurrente, tome tylenol 325 mg-1000 mg cada 6 horas para el dolor NO ms de 4000 mg lorne 24 horas Lorenz evaluacin no est completa sin un seguimiento con lorenz PCP SI tiene alguno de los siguientes sntomas, vuelva al servicio de urgencias: - empeoramiento del dolor de karen - nuseas, vmitos e incapacidad para tolerar PO - debilidad en misty extremidad - dolor de pecho o dificultad para respirar Si tiene algn sntoma emergente, solicite ayuda mdica de inmediato. Print Language: PASHTO - Post Discharge Activity
[2019-11-16] MEDS ORDERED: ACETAMINOPHEN 325 MG TABLET (FP) PO ONE (01:21)
[2019-11-16 01:33] VITALS: BP 168/91; PULSE 63
[2019-11-16] MEDS ORDERED: ACETAMINOPHEN 325 MG TABLET (FP) ONE (02:00)
--- NOTE | 2019-11-30 21:14 | PDOC ---
Documentation entered by Emmie Rodriguez SCRIBE, acting as scribe for Gaye Dacosta MD. Gaye Dacosta MD: This documentation has been prepared by the herberibeMichael Sydney, SCRIBE, under my direction and personally reviewed by me in its entirety. I confirm that the documentation accurately reflects all work, treatment, procedures, and medical decision making performed by me. Attending Attestation - Resident Resident Name: Clari Sandhu - ED Attending Attestation I have performed the following: I have examined & evaluated the patient, The case was reviewed & discussed with the resident, I agree w/resident's findings & plan, Exceptions are as noted - HPI HPI: 11/15/19 22:14 Patient is a 83 year old female with a significant past medical history of epilepsy who presents to the ED BIBA s/p fall. As per patient, she was trying to get up to retrieve her walker when she fell, hitting her head. Patient endorses pain in her left hand, both shoulders, left hip, and her back. Patient denies loss of consciousness. Denies fever, chills, headache, shortness of breath, chest pain, nausea, vomiting, diarrhea, constipation, or urinary changes. Allergies: NKDA PCP: Dr. Candelario - Physicial Exam PE: 11/15/19 22:16 GENERAL: Well-appearing, well-nourished. No apparent distress. HEENT: Normocephalic, atraumatic. PERRL, EOM intact. CARDIOVASCULAR: Normal S1, S2. Regular rate and rhythm. PULMONARY: Clear to auscultation bilaterally. ABDOMEN: Soft, non-distended, non-tender. EXTREMITIES: Normal ROM in all four extremities. No gross deformities. SKIN: Warm, dry. No rash NEUROLOGICAL: No focal neurological deficits. - Medical Decision Making 11/16/19 02:05 Patient Name: JACKELYN MARVIN THIS IS A PRELIMINARY REPORT FROM [facility] RISK MANAGEMENT DIRECTOR EXAM: CT Cervical spine wo: IMAGES: [id number] EXAM DATE AND TIME: 2015-12-12 12:52:56 REASON FOR EXAM: Neck pain. COMPARISON: None TECHNIQUE: Thin cut axial images were obtained and sagittal and coronal r eformatted images generated. FINDINGS: There are no cervical spine fractures or dislocations. There is no evidence of prevertebral soft tissue swelling. Bone mineralization appears normal. The craniocervical junction appears normal. The vertebral body heights, alignments and normal cervical lordotic curve are well-maintained. The apophyseal joints appear normal. Chronic disc degeneration is noted at the C3-4 and C5-6 levels, with small posterior disc osteophyte complexes producing mild ventral impressions on thecal sac but without evidence of spinal cord compression or nerve root compromise. The intervertebral disks are normal in height at the remaining levels of the cervical and upper thoracic spine, without evidence of disk herniation into the spinal canal. The spinal canal and neural foramina are patent at all levels without evidence of spinal cord compression or nerve root compromise. There are no dominant masses or evidence of adenopathy in the imaged soft tissues of the neck. The thoracic inlet and lung apices are unremarkable. Atherosclerotic mural calcifications are seen at the carotid bulbs. There is a 1.5 cm low-density nodule within the right thyroid lobe. The left thyroid gland is normal in size and contour. IMPRESSION: Chronic disc degeneration is noted at the C3-4 and C5-6 levels, with small posterior disc osteophyte complexes producing mild ventral impressions on thecal sac but without evidence of spinal cord compression or nerve root compromise. The spinal canal and neural foramina are patent at all levels without evidence of spinal cord compression or nerve root compromise. The study is otherwise unremarkable. No fracture. 11/16/19 02:06 Patient Name: JACKELYN MARVIN THIS IS A PRELIMINARY REPORT FROM [facility] MANAGEMENT DIRECTOR EXAM: CT Head wo IMAGES: [id number] EXAM DATE AND TIME: 2019-11-16 00:54:55 HISTORY: 83 year old woman: Head trauma following a fall. COMPARISON: Prior head CT conducted on: 12/12/2015. TECHNIQUE: Non-contrast axial images were obtained. Coronal and sagittal images were also generated. FINDINGS: There are no intracranial hemorrhages, brain parenchymal contusion injuries, or imaged calvarial, facial or skull base fractures. There is no subcutaneous soft tissue swelling. There are no extra-axial fluid collections or evidence of an intra-axial mass lesion. The sulci and ventricles are moderately prominent, suggesting age related involutional changes. There is diffuse white matter chronic microvascular ischemic demyelination extending from the periventricular surfaces to the corticomedullary junctions bilaterally primarily in the in the frontal and parietal lobes, and to a lesser degree in the occipital lobes. 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 Cerebral vega/white matter differentiation is preserved, without clear evidence of an acute ischemic lesion at this time. Orbital and petrous structures, cerebellopontine angles, and posterior fossa appear unremarkable. The paranasal and mastoid sinuses are clear. IMPRESSION: No evidence of acute or chronic ischemic change. Moderate age related involutional changes. The study is otherwise unremarkable. No calvarial, facial or skull base fractures imaged on the current exam. No intracranial hemorrhages or brain parenchymal contusion injuries. Compared to the prior exam, there has been no significant interval change. 11/16/19 02:18 CT scan were negative. Called daughter made aware of situation will come miner pick daughter. Son picked up mother was made aware of imaging and follow up instructions. Discharge - Discharge Information Problems reviewed: Yes Clinical Impression/Diagnosis: Fall Condition: Stable Disposition: HOME - Follow up/Referral Referrals: Justo Candelario [Primary Care Provider] - - Patient Discharge Instructions Patient Printed Discharge Instructions: How to Prevent Falls Additional Instructions: You came to ED for a fall. At the ED we took images of your entire back and head. All the images came back negative for any bleeds or fractures. For pain we gave you tylenol and lidocaine patch. If you have any recurring pain please take tylenol 325mg-1000mg every 6 hours for pain NO more than 4000mg for 24 hours Your workup is not complete without following up with PCP IF you have any of the following please return to the ED: - worsening headache - nausea vomiting and unable to tolerate PO - weakness in one limb - chest pain or shortness of breath If you have any emergent symptoms please call for medical help right away. Viniste a urgencias por misty cada. En el servicio de urgencias tomamos imgenes de toda hopkins [place] y karen. Todas las imgenes resultaron negativas por cualquier sangrado o fractura. Para el dolor, le dimos un parche de tylenol y lidocana. Si tiene algn dolor recurrente, tome tylenol 325 mg-1000 mg cada 6 horas para el dolor NO ms de 4000 mg lorne 24 horas Hopkins evaluacin no est completa sin un seguimiento con hopkins PCP SI tiene alguno de los siguientes sntomas, vuelva al servicio de urgencias: - empeoramiento del dolor de karen - nuseas, vmitos e incapacidad para tolerar PO - debilidad en misty extremidad - dolor de pecho o dificultad para respirar Si tiene algn sntoma emergente, solicite ayuda mdica de inmediato. Print Language: FRENCH - Post Discharge Activity
== END 2019-11-16 02:50 | disposition home or self-care (01) ==
LOC: JER 21:13
DX: Z04.3 Encounter for examination and observation following other accident (principal); W19.XXXA Unspecified fall, initial encounter
CPT/HCPCS: 70450-TC; 72070-TC-FY; 72100-TC-FY; 72125-TC; 73130-TC-LT-FY; 99285-25

== ENCOUNTER 2019-11-29 12:59 | Inpatient (IN) | payer OTHER ==
--- NOTE | 2019-11-29 14:39 | PDOC ---
History of Present Illness - History of Present Illness Initial Comments: 83 YOF h/o COPD, HLD, seizures presents with weakness and disorientation for 4 days. Per patients son, she has recently added on a number of medications which he believes may be causing her current symptoms. He also mentions that she has had multiple UTIs recently. She receives home health aide for 4 hours per day and her son mentions that one of the aides reported a recent bout of shaking in bed. Could not obtain review of systems as patient was altered. <Dakotah Khan - Last Filed: 11/29/19 17:19> <Sophia Blanton - Last Filed: 12/01/19 10:57> - General Chief Complaint: Weakness Stated Complaint: BACK PAIN Time Seen by Provider: 11/29/19 13:33 Past History - Medical History Anemia: No Asthma: No Cardiac Disorders: No CVA: No COPD: No CHF: No Dementia: Yes Diabetes: Yes (pre) GI Disorders: No Disorders: No HTN: Yes Hypercholesterolemia: No Liver Disease: No Seizures: Yes (, 5 YEARS AGO) Thyroid Disease: No - Surgical History Abdominal Surgery: Yes Appendectomy: Yes Cardiac Surgery: No Cholecystectomy: No Lung Surgery: No Neurologic Surgery: No Orthopedic Surgery: No - Reproductive History Is Patient Now?: No - Psycho-Social/Smoking History Smoking Status: No Smoking History: Never smoked Have you smoked in the past 12 months: No Number of Cigarettes Smoked Daily: 0 Cigars Per Day: 0 Information on smoking cessation initiated: No - Substance Abuse Hx (Audit-C & DAST Scrn) How often the patient has a drink containing alcohol: Never Score: In Men: 4 or > Positive; In Women: 3 or > Positive: 0 Screen Result (Pos requires Nsg. Audit-10AR): Negative <Dakotah Khan - Last Filed: 11/29/19 17:19> <Sophia Blanton - Last Filed: 12/01/19 10:57> - Medical History Allergies/Adverse Reactions: Allergies Allergy/AdvReac Type Severity Reaction Status Date / Time No Known Drug Allergies Allergy Verified 11/15/19 21:14 Home Medications: Ambulatory Orders Atorvastatin Ca [Lipitor] 20 mg PO HS 11/29/19 Empagliflozin [Jardiance] 10 mg PO DAILY 11/29/19 Linaclotide [Linzess] 72 mcg PO DAILY 11/29/19 Metformin HCl [Glucophage] 500 mg PO BID 11/29/19 Metoprolol Succinate [Toprol Xl] 50 mg PO DAILY 11/29/19 Multivitamins [Tab-A-Vit -] 1 tab PO DAILY 11/29/19 Pantoprazole Sodium [Protonix -] 20 mg PO DAILY 11/29/19 RX: Acetaminophen 650 mg PO BID PRN 11/29/19 RX: Aspirin 81 mg PO DAILY 11/29/19 RX: Folic Acid 1 mg PO DAILY 11/29/19 RX: Gabapentin 300 mg PO DAILY 11/29/19 RX: Losartan Potassium 100 mg PO DAILY 11/29/19 RX: Methimazole 5 mg PO DAILY 11/29/19 RX: Paroxetine HCl 10 mg PO DAILY 11/29/19 Sitagliptin Phosphate [Januvia] 50 mg PO DAILY 11/29/19 levETIRAcetam [Levetiracetam ER] 500 mg PO BID 11/29/19 Review of Systems - Review of Systems Able to Perform ROS?: No (patient altered) <Dakotah Khan - Last Filed: 11/29/19 17:19> *Physical Exam - Vital Signs Last Vital Signs Temp Pulse Resp BP Pulse Ox 98.2 F 73 15 135/85 93 L 11/29/19 13:42 11/29/19 13:42 11/29/19 13:42 11/29/19 13:42 11/29/19 13:42 - Physical Exam General Appearance: Yes: Nourished, Appropriately Dressed, Other (Patient is lying in bed, confused and disoriented, she is A and O x1) HEENT: positive: EOMI, REMA, Normal ENT Inspection, Normal Voice Neck: positive: Trachea midline, Normal Thyroid Respiratory/Chest: positive: Lungs Clear, Normal Breath Sounds Cardiovascular: positive: Regular Rhythm, Regular Rate, S1, S2 Gastrointestinal/Abdominal: positive: Flat, Soft Musculoskeletal: positive: Normal Inspection Extremity: positive: Normal Capillary Refill, Normal Inspection Integumentary: positive: Normal Color, Dry, Warm 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, Fully Oriented, Alert, Normal Mood/Affect, Normal Response, Motor Strength 5/5 <Dakotah Khan - Last Filed: 11/29/19 17:19> - Vital Signs Last Vital Signs Temp Pulse Resp BP Pulse Ox 98.5 F 84 20 130/70 99 12/01/19 09:00 12/01/19 09:00 12/01/19 09:00 12/01/19 09:00 12/01/19 09:00 <Sophia Blanton - Last Filed: 12/01/19 10:57> ED Treatment Course - LABORATORY CBC & Chemistry Diagram: 11/29/19 14:50 11/29/19 14:50 <Dakotah Khan - Last Filed: 11/29/19 17:19> - LABORATORY CBC & Chemistry Diagram: 11/29/19 14:50 11/29/19 14:50 - ADDITIONAL ORDERS Additional order review: 11/29/19 14:50 Urine Culture - Final Urine - Urine Clean Catch NO GROWTH OBTAINED 11/29/19 14:50 RBC 4.33 MCV 95.3 MCHC 33.5 RDW 13.0 MPV 8.5 Neutrophils % 49.0 Lymphocytes % 34.8 Monocytes % 11.0 H Eosinophils % 4.5 Basophils % 0.7 - Medications Given in the ED: ED Medications Discontinued Medications Generic Name Dose Route Start Last Admin Trade Name Freq PRN Reason Stop Dose Admin Gabapentin 300 mg 11/30/19 10:00 12/01/19 09:39 Neurontin - PO 300 mg DAILY JOSE Administration Heparin Sodium (Porcine) 5,000 unit 11/30/19 14:00 12/01/19 05:37 Heparin - SQ 5,000 unit TID JOSE Administration Sodium Chloride 1,000 mls @ 83 mls/hr 11/30/19 11:45 11/30/19 12:24 Normal Saline - IV 83 mls/hr ASDIR JOSE Administration Losartan Potassium 100 mg 11/30/19 10:00 11/30/19 11:44 Cozaar - PO 100 mg DAILY JOSE Administration Metoprolol Succinate 50 mg 11/30/19 10:00 12/01/19 09:39 Toprol Xl - PO 50 mg DAILY JOSE Administration <Sophia Blanton - Last Filed: 12/01/19 10:57> Medical Decision Making - Medical Decision Making 83 YOF h/o COPD, HLD, seizures presents with weakness and disorientation for 4 days. Per patients son, she has recently added on a number of medications which he believes may be causing her current symptoms. He also mentions that she has had multiple UTIs recently. She receives home health aide for 4 hours per day and her son mentions that one of the aides reported a recent bout of shaking in bed. Could not obtain review of systems as patient was altered. On arrival patients O2 saturation was 93% on room air and 100% on 4L NC. Physical exam reveals patient who is only oriented to name, otherwise wnl. ddx: seizures, CVA, TIA, ACS, anemia, seizures, metabolic encephalopathy plan: CT head, EKG, CBC, CMP, cardiac profile. reassess: labs wnl, EKG showed normal sinus rythm, no signs of ischemia. CXR <Dakotah Khan - Last Filed: 11/29/19 17:19> Discharge <Dakotah Khan - Last Filed: 11/29/19 17:19> - Discharge Information Problems reviewed: Yes - Admission Yes <Sophia Blanton - Last Filed: 12/01/19 10:57> - Discharge Information Clinical Impression/Diagnosis: Altered mental status Qualifiers: Altered mental status type: transient alteration of awareness Qualified Code(s): R40.4 - Transient alteration of awareness Condition: Fair
[2019-11-29 15:08] LABS: BASO % 0.7 % (0-2.0); EOS % 4.5 % (0-4.5); HEMATOCRIT 41.2 % (32.4-45.2); HEMOGLOBIN 13.8 GM/dL (10.7-15.3); LYMPH % 34.8 % (8-40); MCHC 33.5 g/dl (32.0-36.0); MEAN CELL VOLUME 95.3 fl (80-96); MEAN PLT VOLUME 8.5 fl (7.5-11.1); PLATELET COUNT 177 K/MM3 (134-434); RBC 4.33 M/mm3 (3.60-5.2); WHITE BLOOD COUNT 7.2 K/mm3 (4.0-10.0)
[2019-11-29 15:17] LABS: PH,URINE 7.5 (5.0-8.0); URINE APPEARANCE CLEAR; URINE BILIRUBIN NEGATIVE (NEGATIVE); URINE COLOR YELLOW; URINE GLUCOSE (UA) 3+ (NEGATIVE); URINE KETONE NEGATIVE (NEGATIVE); URINE LEUK ESTERASE NEGATIVE (NEGATIVE); URINE NITRITE NEGATIVE (NEGATIVE); URINE PROTEIN NEGATIVE (NEGATIVE); URINE UROBILINOGEN 0.2 mg/dL (0.2-1.0)
--- NOTE | 2019-11-29 15:27 | PDOC ---
Attending Attestation - Resident Resident Name: Dakotah hKan - ED Attending Attestation I have performed the following: I have examined & evaluated the patient, The case was reviewed & discussed with the resident, I agree w/resident's findings & plan - HPI HPI: 11/29/19 15:27 83 YOF h/o COPD, HLD, seizures presents with weakness and disorientation for 4 days. Per patients son, she has recently added on a number of medications which he believes may be causing her current symptoms. He also mentions that she has had multiple UTIs recently. She receives home health aide for 4 hours per day and her son mentions that one of the aides reported a recent bout of shaking in bed. Could not obtain review of systems as patient was altered. - Physicial Exam PE: 11/29/19 15:27 Agree with the resident's HPI and PE as documented in the electronic medical record. NAD, alert, oriented to person only, altered. EOMI, PERRL, nl conjunctiva, anicteric; neck supple. lungs clear, RRR, abdomen soft nontender. no rebound, guarding. Back nontender. CEJA x4, no focal neuro deficits. No peripheral edema. normal color for ethnicity, WWP. - Medical Decision Making 11/29/19 15:27 Vital Signs Temp Pulse Resp BP Pulse Ox 98.2 F 73 15 135/85 93 L 11/29/19 13:42 11/29/19 13:42 11/29/19 13:42 11/29/19 13:42 11/29/19 13:42 vitals reviewed, mildly low sats 93%, on nasal cannula lungs are clear DDx AMS: infection, UTI, metabolic/electrolyte derangement, encephalopathy, dehydration, CVA, ICH, ACS, worsening dementia. labs and UA unremarkable covid swab keppra level pending admit for encephalopathy/AMS, medical management 12/01/19 10:56 12/01/19 10:57 Discharge - Discharge Information Problems reviewed: Yes Clinical Impression/Diagnosis: Altered mental status Condition: Fair - Admission Yes - Follow up/Referral - Patient Discharge Instructions - Post Discharge Activity
[2019-11-29 15:30] LABS: ALBUMIN 3.6 g/dl (3.4-5.0); ALK PHOS 116 U/L (45-117); ANION GAP 9 MMOL/L (8-16); BILIRUBIN,TOTAL 0.3 mg/dL (0.2-1); BLOOD UREA NITROGEN 14.4 mg/dL (7-18); CALCIUM 9.1 mg/dL (8.5-10.1); CHLORIDE 103 mmol/L (98-107); CO2 28 mmol/L (21-32); CREATININE 0.8 mg/dL (0.55-1.3); GLUCOSE,RANDOM 80 mg/dL (74-106); POTASSIUM 4.4 mmol/L (3.5-5.1); SGOT/AST 29 U/L (15-37); SGPT/ALT 26 U/L (13-61); SODIUM 139 mmol/L (136-145); TOT PROT 6.9 g/dl (6.4-8.2)
--- NOTE | 2019-11-29 19:23 | HP ---
CHIEF COMPLAINT: Altered mental status and weakness with falling when getting up for the past month or so and getting worse in the past 4 days PCP: Dr. Justo Candelario HISTORY OF PRESENT ILLNESS: 83 year old female patient with past medical history that includes History of UTIs, Seizures with last seizure >2 years ago per daughter, COPD, HTN, "borderline diabetes" per family, and HLD, who presented to the ED with AMS and weakness with falling when getting up for the past month or so and getting worse in the past 4 days. The patient's daughter says that about a month and a half ago the patient's doctor nearly doubled the patient's medication list and ever since then the patient has been getting lightheaded and also falling when she gets up. The patient ambulates with a walker, but has recently been getting weaker, which has been making the falls more common. She has fallen and hit her head 2 weeks ago as well as falling and hitting her head 1 week ago. She has a home health aide for 4 hours a day, but otherwise is alone and has to take care of herself. This morning, the patient's daughter observed that the patient was confused, with tremors in her whole body, and telling her in Angolan "I'm too tired. I want to jump out of the window". Due to the patient's confused state and weakness, the patient's daughter brought her to the ED. In the ED, the patient was A&Ox1, later observed to be A&Ox2 a couple hours later. The daughter says that her baseline is A&Ox3 and conversant. The daughter said that she thinks the Januvia is the root cause, as she recalls that her mother was only "borderline diabetes", but now is on 3 diabetes meds. The daughter would also like the patient to have physical therapy and/or rehab due to her weakness. ER course was notable for: (1) ECG, CXR (2) Keppra blood level (3) U/A Recent Travel: denies PAST MEDICAL HISTORY: History of UTIs, Seizures with last seizure >2 years ago per daughter, COPD, HTN, "borderline diabetes" per family, HLD PAST SURGICAL HISTORY: Appendectomy Cataract surgery Social History: Smoking: never/denies Alcohol: denies Drugs: denies Allergies No Known Drug Allergies Allergy (Verified 11/29/19 18:30) HOME MEDICATIONS: Home Medications Medication Instructions Recorded Acetaminophen 650 mg PO BID PRN 11/29/19 Aspirin 81 mg PO DAILY 11/29/19 Atorvastatin Ca [Lipitor] 20 mg PO HS 11/29/19 Empagliflozin [Jardiance] 10 mg PO DAILY 11/29/19 Folic Acid 1 mg PO DAILY 11/29/19 Gabapentin 300 mg PO DAILY 11/29/19 Linaclotide [Linzess] 72 mcg PO DAILY 11/29/19 Losartan Potassium 100 mg PO DAILY 11/29/19 Metformin HCl [Glucophage] 500 mg PO BID 11/29/19 Methimazole 5 mg PO DAILY 11/29/19 Metoprolol Succinate [Toprol Xl] 50 mg PO DAILY 11/29/19 Multivitamins [Tab-A-Vit -] 1 tab PO DAILY 11/29/19 Pantoprazole Sodium [Protonix -] 20 mg PO DAILY 11/29/19 Paroxetine HCl 10 mg PO DAILY 11/29/19 Sitagliptin Phosphate [Januvia] 50 mg PO DAILY 11/29/19 levETIRAcetam [Levetiracetam ER] 500 mg PO BID 11/29/19 REVIEW OF SYSTEMS CONSTITUTIONAL: weakness Absent: diaphoresis HEENT: Absent: rhinorrhea, nasal congestion, throat pain, throat swelling, difficulty swallowing, mouth swelling, ear pain, eye pain, visual changes CARDIOVASCULAR: lightheadedness Absent: chest pain RESPIRATORY: Absent: shortness of breath GASTROINTESTINAL: Absent: abdominal pain GENITOURINARY: mild dysuria Absent: NEUROLOGIC: mental status changes, falls Absent: PSYCHIATRIC: wanted to jump out of the window in the morning per daughter, confused Absent: PHYSICAL EXAMINATION Vital Signs - 24 hr 11/29/19 11/29/19 11/29/19 13:42 14:15 17:03 Temperature 98.2 F Pulse Rate 73 Pulse Rate [ 82 Left] Respiratory 15 15 Rate Blood Pressure 135/85 Blood Pressure 128/78 [Arm] O2 Sat by Pulse 93 L 100 99 Oximetry (%) 11/29/19 17:19 Temperature 98.2 F Pulse Rate Pulse Rate [ 68 Left] Respiratory 18 Rate Blood Pressure Blood Pressure 134/74 [Arm] O2 Sat by Pulse 100 Oximetry (%) GENERAL: A&Ox2, fatigued, in no acute distress. HEAD: Normal with no signs of trauma. EYES: Extraocular movements intact. No lid lag. EARS, NOSE, THROAT: Ears normal, nares patent, oropharynx clear without exudates. NECK: Normal range of motion, supple without lymphadenopathy, JVD, or masses. LUNGS: Breath sounds equal, clear to auscultation bilaterally. No wheezes, and no crackles. No accessory muscle use. HEART: Regular rate and rhythm, normal S1 and S2. ABDOMEN: Soft, nontender, not distended, normoactive bowel sounds, no guarding, no rebound, no masses. MUSCULOSKELETAL: Normal range of motion at all joints. No bony deformities or tenderness. UPPER EXTREMITIES: 2+ pulses, warm, well-perfused. No cyanosis. No clubbing. No peripheral edema. LOWER EXTREMITIES: 2+ pulses, warm, well-perfused. No calf tenderness. No peripheral edema. NEUROLOGICAL: Normal speech. Normal gait. PSYCHIATRIC: Cooperative. Good eye contact. Appropriate mood and affect. SKIN: Warm, dry, normal turgor, no rashes or lesions noted, normal capillary refill. Laboratory Results - last 24 hr 11/29/19 11/29/19 11/29/19 14:50 14:50 14:50 WBC 7.2 RBC 4.33 Hgb 13.8 Hct 41.2 MCV 95.3 MCH 32.0 MCHC 33.5 RDW 13.0 Plt Count 177 D MPV 8.5 Absolute Neuts (auto) 3.5 Neutrophils % 49.0 Lymphocytes % 34.8 Monocytes % 11.0 H Eosinophils % 4.5 Basophils % 0.7 Nucleated RBC % 0 Sodium 139 Potassium 4.4 Chloride 103 Carbon Dioxide 28 Anion Gap 9 BUN 14.4 Creatinine 0.8 Est GFR (CKD-EPI)AfAm 77.92 Est GFR (CKD-EPI)NonAf 67.23 Random Glucose 80 Calcium 9.1 Total Bilirubin 0.3 AST 29 ALT 26 Alkaline Phosphatase 116 Creatine Kinase 80 Troponin I < 0.02 Total Protein 6.9 Albumin 3.6 Urine Color Yellow Urine Appearance Clear Urine pH 7.5 D Ur Specific [place] 1.017 Urine Protein Negative Urine Glucose (UA) 3+ H Urine Ketones Negative Urine Blood Negative Urine Nitrite Negative Urine Bilirubin Negative Urine Urobilinogen 0.2 Ur Leukocyte Esterase Negative ASSESSMENT/PLAN: 83 year old female patient with past medical history that includes History of UTIs, Seizures with last seizure >2 years ago per daughter, COPD, HTN, "borderline diabetes" per family, and HLD, who presented to the ED with AMS and weakness with falling when getting up for the past month or so and getting worse in the past 4 days. 1. Falls possibly 2/2 vasovagal possibly 2/2 meds - med rec with pharmacy, which is closed now - Diabetes meds held 2. Acute Encephalopathy - Urine cx - CXR - Vit12, Folate, TSH 3. DM - Novolog sliding scale 4. Seizure Hx - Keppra restarted #FEN - Monitoring electrolytes, regular diet DVT PPx - SCDs until CT head comes back Family Medical History Family History: As Documented Other Family History: No history of MS, stroke, or cancer in her family that she knows or can remember. Visit type - Medication Review Med list reviewed for High Risk Meds patients 65 and older: Yes - Emergency Visit Emergency Visit: Yes ED Registration Date: 11/29/19 Care time: The patient presented to the Emergency Department on the above date and was hospitalized for further evaluation of their emergent condition. - New Patient This patient is new to me today: Yes Date on this admission: 11/30/19 - Critical Care Critical Care patient: No ATTENDING PHYSICIAN STATEMENT I saw and evaluated the patient. I reviewed the resident's note and discussed the case with the resident. I agree with the resident's findings and plan as documented. SUBJECTIVE: OBJECTIVE: ASSESSMENT AND PLAN:
[2019-11-29] MEDS: levETIRAcetam XR 500 MG TAB PO SCH (22:05)
[2019-11-29] MEDS: INSULIN SLIDING SCALE (NOVOLOG) 1 VIAL SQ SCH (22:09)
--- NOTE | 2019-11-29 22:18 | PN ---
Teaching Attending Note Name of Resident: Villa Mitchell ATTENDING PHYSICIAN STATEMENT I saw and evaluated the patient. I reviewed the resident's note and discussed the case with the resident. I agree with the resident's findings and plan as documented. SUBJECTIVE: 83 year old female patient with hx of Seizures with last seizure >2 years ago pe r daughter, COPD, HTN, "borderline diabetes" per family, and HLD, who presented to the ED with AMS and weakness with falling when getting up, daughter reports pt was confused this am -- wanting to jump out the window Daughter states that mother is more confused since adding new medication januvia to her regimen OBJECTIVE: Gen: awake, alert, oriented to person and place, confused about year HEENT; eomi, nc/at oropharynx - clear CV: Pos S1, S2 rrr Chest: decreased bs tabatha Abd: soft, nt, nd pos bs Ext: no c/c/e ASSESSMENT AND PLAN: 83 y/o female with above hx admitted with ams -check ct head noncontrast neuro exam stable check keppra level hold oral diabetic agents including janvia place on iss - no clear singn of infection -neuro eval
[2019-11-30 04:44] VITALS: BMI 23.9
[2019-11-30] MEDS: INSULIN SLIDING SCALE (NOVOLOG) 1 VIAL SQ SCH ×4 (06:59→21:07)
[2019-11-30] MEDS ORDERED: PT OWN MED DRAWER 7, Y5N ONE ×2 (09:25→20:49)
[2019-11-30] MEDS: FOLIC ACID 1 MG TABLET (FP) PO SCH (09:35)
[2019-11-30] MEDS: ASPIRIN 81 MG CHEWABLE TABLETS PO SCH (09:35)
[2019-11-30] MEDS: METHIMAZOLE 5 MG TABLET (FP) PO SCH (09:35)
[2019-11-30] MEDS: PARoxetine HCL 10 MG TABLET PO SCH (09:35)
[2019-11-30] MEDS: levETIRAcetam XR 500 MG TAB PO SCH ×2 (09:36→21:06)
[2019-11-30] MEDS: GABAPENTIN 300 MG CAPSULE PO SCH (09:36)
[2019-11-30] MEDS: PANTOPRAZOLE 20 MG TABLET PO SCH (09:36)
[2019-11-30] MEDS: MULTIVITAMINS (DAILY MVI) TABLET (FP) PO SCH (09:36)
[2019-11-30] MEDS ORDERED: LOSARTAN POTASSIUM 100 MG TABLET PO SCH (10:00)
[2019-11-30] MEDS ORDERED: LOSARTAN POTASSIUM 50 MG TABLET (FP) PO SCH (10:00)
--- NOTE | 2019-11-30 10:25 | PN ---
Progress Note (short form) - Note Progress Note: Subjective: full time staff interpreter phone karen [phone] used. but patient is not very cooperative with full time staff interpreter . denies ABd pain or SOB . thinks she is at home. Spoke to her daughter in law over phone. She has been hallucinating ( visual ) x 1 month, and her mental status is declineing. her base line is very sharp. yesterday she was agitated and more condused. she lives a lone and has attendant x 4 hrs . problems ambulating Objective: Vital Signs: Last Vital Signs Temp Pulse Resp BP Pulse Ox 97.8 F 65 18 148/57 L 99 11/30/19 06:00 11/30/19 06:00 11/30/19 06:00 11/30/19 06:00 11/30/19 06:00 Laboratory Results - last 24 hr 11/29/19 11/29/19 11/29/19 07:25 14:50 14:50 WBC 7.2 RBC 4.33 Hgb 13.8 Hct 41.2 MCV 95.3 MCH 32.0 MCHC 33.5 RDW 13.0 Plt Count 177 D MPV 8.5 Absolute Neuts (auto) 3.5 Neutrophils % 49.0 Lymphocytes % 34.8 Monocytes % 11.0 H Eosinophils % 4.5 Basophils % 0.7 Nucleated RBC % 0 Sodium Potassium Chloride Carbon Dioxide Anion Gap BUN Creatinine Est GFR (CKD-EPI)AfAm Est GFR (CKD-EPI)NonAf POC Glucometer Random Glucose Calcium Total Bilirubin AST ALT Alkaline Phosphatase Creatine Kinase Troponin I Total Protein Albumin Vitamin B12 658 Serum Folate 53 H TSH 1.18 Urine Color Yellow Urine Appearance Clear Urine pH 7.5 D Ur Specific [place] 1.017 Urine Protein Negative Urine Glucose (UA) 3+ H Urine Ketones Negative Urine Blood Negative Urine Nitrite Negative Urine Bilirubin Negative Urine Urobilinogen 0.2 Ur Leukocyte Esterase Negative 11/29/19 11/29/19 11/29/19 14:50 19:34 22:08 WBC RBC Hgb Hct MCV MCH MCHC RDW Plt Count MPV Absolute Neuts (auto) Neutrophils % Lymphocytes % Monocytes % Eosinophils % Basophils % Nucleated RBC % Sodium 139 Potassium 4.4 Chloride 103 Carbon Dioxide 28 Anion Gap 9 BUN 14.4 Creatinine 0.8 Est GFR (CKD-EPI)AfAm 77.92 Est GFR (CKD-EPI)NonAf 67.23 POC Glucometer 110 100 Random Glucose 80 Calcium 9.1 Total Bilirubin 0.3 AST 29 ALT 26 Alkaline Phosphatase 116 Creatine Kinase 80 Troponin I < 0.02 Total Protein 6.9 Albumin 3.6 Vitamin B12 Serum Folate TSH Urine Color Urine Appearance Urine pH Ur Specific [place] Urine Protein Urine Glucose (UA) Urine Ketones Urine Blood Urine Nitrite Urine Bilirubin Urine Urobilinogen Ur Leukocyte Esterase 11/30/19 06:59 WBC RBC Hgb Hct MCV MCH MCHC RDW Plt Count MPV Absolute Neuts (auto) Neutrophils % Lymphocytes % Monocytes % Eosinophils % Basophils % Nucleated RBC % Sodium Potassium Chloride Carbon Dioxide Anion Gap BUN Creatinine Est GFR (CKD-EPI)AfAm Est GFR (CKD-EPI)NonAf POC Glucometer 94 Random Glucose Calcium Total Bilirubin AST ALT Alkaline Phosphatase Creatine Kinase Troponin I Total Protein Albumin Vitamin B12 Serum Folate TSH Urine Color Urine Appearance Urine pH Ur Specific [place] Urine Protein Urine Glucose (UA) Urine Ketones Urine Blood Urine Nitrite Urine Bilirubin Urine Urobilinogen Ur Leukocyte Esterase Physical Exam: NAD, awake,, alert, dry MM. CV: RRR, no MRG Lungs: CATB EXt : No edema or erythema abd: soft, NT, ND , NL BS Neuro , very limited, no facial droop, EOMI, strength 5/5 in upper and lower extremities proximally and distally. nose to finger nl. per RN unsteady gait Imaging: CT reviewed. cxray reviewed Assessment/Plan 83 y/o lady with h/o HTN, DM , Seizure disorder , UTI who presented with worsening confusion and agitation 1- Acute on chronic worsening mental status : 1 month of hallucinations, and acute agitation yesterday. unclear etiology. ? dementia. unlikely seizure. non focal limited neuro exam. unlikely READ[employer] infections . No signs of systemic infection. Looks volume depleted on exam . possibly contributing - start IVF - check MRI of brain - neuro consult - primary to review her meds. ? polypharmacy - hold neurontin - check NH4 2- h/o DM - A1c in 10/16 is 6.6 - she isn on 3 Dm meds at home. probably can be discharged on one - now give SSI only. 3- h/o HTN: resume losartan and toprol 4- DVT PX : add SQ heparin 5- Unsteady gait: need PT will need placement patient to be transferred to Dr. Shankar's service. [facility] is closed. her home meds need to be confirmed by primary team with her pharm or PCP . Visit type - Emergency Visit Emergency Visit: Yes ED Registration Date: 11/29/19 Care time: The patient presented to the Emergency Department on the above date and was hospitalized for further evaluation of their emergent condition. - New Patient This patient is new to me today: Yes Date on this admission: 11/30/19 - Critical Care Critical Care patient: No - Medication Review Med list reviewed for High Risk Meds patients 65 and older: Yes
[2019-11-30] MEDS: LOSARTAN POTASSIUM 50 MG TABLET (FP) PO SCH (11:44)
[2019-11-30] MEDS ORDERED: SODIUM CHLORIDE 1,000 ML IV SCH (11:45)
--- NOTE | 2019-11-30 13:22 | CON.NEURO ---
Consult - Past Medical History MEDIA ASSOCIATE: Yes: Seizure Cardio/Vascular: Yes: HTN, Hyperlipdemia ...: No Infectious Disease: Yes: Other (recurrent UTI) Musculoskeletal: Yes: Osteoarthritis Endocrine: Yes: Diabetes Mellitus - Past Surgical History Past Surgical History: Yes: Appendectomy, Hysterectomy - Alcohol/Substance Use Hx Alcohol Use: No - Smoking History Smoking history: Never smoked Have you smoked in the past 12 months: No Aproximately how many cigarettes per day: 0 - Social History ADL: Independent History of Recent Travel: No Home Medications - Allergies Allergies/Adverse Reactions: Allergies Allergy/AdvReac Type Severity Reaction Status Date / Time No Known Drug Allergies Allergy Verified 11/15/19 21:14 - Home Medications Home Medications: Ambulatory Orders Acetaminophen 650 mg PO BID PRN 11/29/19 Aspirin 81 mg PO DAILY 11/29/19 Atorvastatin Ca [Lipitor] 20 mg PO HS 11/29/19 Empagliflozin [Jardiance] 10 mg PO DAILY 11/29/19 Folic Acid 1 mg PO DAILY 11/29/19 Gabapentin 300 mg PO DAILY 11/29/19 Linaclotide [Linzess] 72 mcg PO DAILY 11/29/19 Losartan Potassium 100 mg PO DAILY 11/29/19 Metformin HCl [Glucophage] 500 mg PO BID 11/29/19 Methimazole 5 mg PO DAILY 11/29/19 Metoprolol Succinate [Toprol Xl] 50 mg PO DAILY 11/29/19 Multivitamins [Tab-A-Vit -] 1 tab PO DAILY 11/29/19 Pantoprazole Sodium [Protonix -] 20 mg PO DAILY 11/29/19 Paroxetine HCl 10 mg PO DAILY 11/29/19 Sitagliptin Phosphate [Januvia] 50 mg PO DAILY 11/29/19 levETIRAcetam [Levetiracetam ER] 500 mg PO BID 11/29/19 Family Medical History Other Family History: No history of IA, stroke, or cancer in her family that she knows or can remember. Physical Exam-Neuro Vital Signs: Vital Signs Temperature 97.8 F 11/30/19 06:00 Pulse Rate 65 11/30/19 06:00 Respiratory Rate 18 11/30/19 06:00 Blood Pressure 148/57 L 11/30/19 06:00 O2 Sat by Pulse Oximetry (%) 99 11/30/19 06:00 Labs: CBC, BMP 11/29/19 14:50 11/29/19 14:50 Assessment/Plan cc wosening confusion HPI 83 year old female history of seizure, copd, htn, bordering DM, HLD. She is on paxil, gabapentin and keppra Patient has been off seizure medication and now restarted as there wa ssuspician for seizure. Patient has been detiorating slowly and had a fall. There is no fever, seizure or headhace or trauma. Ct head is unreamrakble. Demetria is getting four hour of [employer]. PAST MEDICAL HISTORY: History of UTIs, Seizures with last seizure >2 years ago per daughter, COPD, HTN, "borderline diabetes" per family, HLD PAST SURGICAL HISTORY: Appendectomy Cataract surgery Social History: Smoking: never/denies Alcohol: denies Drugs: denies Allergies No Known Drug Allergies Allergy (Verified 11/29/19 18:30) HOME MEDICATIONS: Home Medications Medication Instructions Recorded Acetaminophen 650 mg PO BID PRN 11/29/19 Aspirin 81 mg PO DAILY 11/29/19 Atorvastatin Ca [Lipitor] 20 mg PO HS 11/29/19 Empagliflozin [Jardiance] 10 mg PO DAILY 11/29/19 Folic Acid 1 mg PO DAILY 11/29/19 Gabapentin 300 mg PO DAILY 11/29/19 Linaclotide [Linzess] 72 mcg PO DAILY 11/29/19 Losartan Potassium 100 mg PO DAILY 11/29/19 Metformin HCl [Glucophage] 500 mg PO BID 11/29/19 Methimazole 5 mg PO DAILY 11/29/19 Metoprolol Succinate [Toprol Xl] 50 mg PO DAILY 11/29/19 Multivitamins [Tab-A-Vit -] 1 tab PO DAILY 11/29/19 Pantoprazole Sodium [Protonix -] 20 mg PO DAILY 11/29/19 Paroxetine HCl 10 mg PO DAILY 11/29/19 Sitagliptin Phosphate [Januvia] 50 mg PO DAILY 11/29/19 levETIRAcetam [Levetiracetam ER] 500 mg PO BID 11/29/19 Ros,FH,SH reviweed in chart NEUROLOGICAL EXAMINATION Alert oriented x 1, speech is normal vss, neck is supple eomi, pupils reactive no face asymmetry moving all ext sensation is normal ct head is unremarkable mri of brain and eeg is pending Assessment/Plan Slow detioration of balance and cognitive function, likley to be early dementia and also rule out any stroke and possible worseneing of dementia. Unlikley to be seizure or meningitis Plan: suggest to stop gabappentin - follow up on tsh, b12,folate - mri of brain and eeg - unlikley to be meningitis or seizure - continue supportive care, would need placement - continue keppra for now -consider psych consult Thanking you so much Curtis León MD
[2019-11-30] MEDS: HEPARIN NA (PORCINE) 5,000 UNITS/ML 1ML VIAL SQ SCH ×2 (15:06→21:05)
[2019-11-30] MEDS: ATORVASTATIN CA 20 MG TABLET (FP) PO SCH (21:06)
[2019-12-01] MEDS: HEPARIN NA (PORCINE) 5,000 UNITS/ML 1ML VIAL SQ SCH ×2 (05:37→21:19)
[2019-12-01] MEDS: INSULIN SLIDING SCALE (NOVOLOG) 1 VIAL SQ SCH ×4 (06:04→21:28)
[2019-12-01] MEDS ORDERED: PT OWN MED DRAWER 7, Y5N ONE ×2 (09:37→20:33)
[2019-12-01] MEDS: ASPIRIN 81 MG CHEWABLE TABLETS PO SCH (09:39)
[2019-12-01] MEDS: MULTIVITAMINS (DAILY MVI) TABLET (FP) PO SCH (09:39)
[2019-12-01] MEDS: GABAPENTIN 300 MG CAPSULE PO SCH (09:39)
[2019-12-01] MEDS: METHIMAZOLE 5 MG TABLET (FP) PO SCH (09:39)
[2019-12-01] MEDS: FOLIC ACID 1 MG TABLET (FP) PO SCH (09:39)
[2019-12-01] MEDS: PARoxetine HCL 10 MG TABLET PO SCH (09:39)
[2019-12-01] MEDS: PANTOPRAZOLE 20 MG TABLET PO SCH (09:39)
[2019-12-01] MEDS: LOSARTAN POTASSIUM 50 MG TABLET (FP) PO SCH (09:40)
[2019-12-01] MEDS: levETIRAcetam XR 500 MG TAB PO SCH ×2 (09:41→21:20)
[2019-12-01] MEDS ORDERED: metoPROLOL SUCCINATE 25 MG TAB.SR.24H (FP) PO SCH (10:33)
--- NOTE | 2019-12-01 10:35 | PN ---
Progress Note, Physician Chief Complaint: Recurrent falls AMS History of Present Illness: NAD in bed Orthostatics done in my presence Negative orthostatic Walked with Physical therapy - Current Medication List Current Medications: Active Medications Aspirin (Asa -) 81 mg PO DAILY [facility] Last Admin: 12/01/19 09:39 Dose: 81 mg Documented by: Atorvastatin Calcium (Lipitor -) 20 mg PO HS [facility] Last Admin: 11/30/19 21:06 Dose: 20 mg Documented by: Folic Acid (Folic Acid -) 1 mg PO DAILY [facility] Last Admin: 12/01/19 09:39 Dose: 1 mg Documented by: Heparin Sodium (Porcine) (Heparin -) 5,000 unit SQ BID [facility] Insulin Aspart (Novolog Vial Sliding Scale -) 0 vial SQ ACHS [facility]; Protocol Last Admin: 12/01/19 06:04 Dose: Not Given Documented by: Levetiracetam (Keppra Xr -) 500 mg PO BID [facility] Last Admin: 12/01/19 09:41 Dose: 500 mg Documented by: Losartan Potassium (Cozaar -) 100 mg PO DAILY [facility] Last Admin: 12/01/19 09:40 Dose: 100 mg Documented by: Methimazole (Tapazole -) 5 mg PO DAILY [facility] Last Admin: 12/01/19 09:39 Dose: 5 mg Documented by: Metoprolol Succinate (Toprol Xl -) 25 mg PO DAILY [facility] Multivitamins/Minerals/Vitamin C (Tab-A-Vit -) 1 tab PO DAILY [facility] Last Admin: 12/01/19 09:39 Dose: 1 tab Documented by: Pantoprazole Sodium (Protonix -) 20 mg PO DAILY [facility] Last Admin: 12/01/19 09:39 Dose: 20 mg Documented by: Paroxetine HCl (Paxil -) 10 mg PO DAILY [facility] Last Admin: 12/01/19 09:39 Dose: 10 mg Documented by: - Objective Vital Signs: Vital Signs Temperature 98.5 F 12/01/19 09:00 Pulse Rate 84 12/01/19 09:00 Respiratory Rate 20 12/01/19 09:00 Blood Pressure 130/70 12/01/19 09:00 O2 Sat by Pulse Oximetry (%) 99 12/01/19 09:00 Constitutional: Yes: Well Nourished, No Distress, Calm Cardiovascular: Yes: Regular Rate and Rhythm Respiratory: Yes: Regular, CTA Bilaterally Gastrointestinal: Yes: Normal Bowel Sounds, Soft Genitourinary: Yes: Incontinence Musculoskeletal: Yes: Muscle Weakness Extremities: Yes: WNL Edema: No Peripheral Pulses WNL: Yes Neurological: Yes: Alert, Oriented (x 2) Psychiatric: Yes: Alert, Oriented Labs: CBC, BMP 11/29/19 14:50 11/29/19 14:50 Problem List - Problems (1) Altered mental status Assessment/Plan: -At baseline -Knows her name and place -CT head negative -Seen by Neurology -EEG + MRI brain can be done outpatient Problems reviewed: Yes Code(s): R41.82 - ALTERED MENTAL STATUS, UNSPECIFIED Qualifiers: Altered mental status type: transient alteration of awareness Qualified Code(s): R40.4 - Transient alteration of awareness (2) Fall Assessment/Plan: -Physical therapy -Fall precautions Problems reviewed: Yes Code(s): W19.XXXA - UNSPECIFIED FALL, INITIAL ENCOUNTER (3) Dementia without behavioral disturbance Assessment/Plan: -Continue Paxil -No behavioral disturbance noted at the hospital Problems reviewed: Yes Code(s): F03.90 - UNSPECIFIED DEMENTIA WITHOUT BEHAVIORAL DISTURBANCE Assessment/Plan See problem list Spoke to daughter in law Amira, who agrees to pt going to [facility]
--- NOTE | 2019-12-01 11:48 | CON.CARD ---
Consult Consult Specialty:: Cardiology Reason for Consultation:: Change in mental status. ? syncope - History of Present Illness History of Present Illness: This is an 83 year old female with a PMH of multiple UTI's, a seizure disorder (last seizure >2 years ago), COPD, HTN, borderline DM, and HLD. She presnets now with about one month of lightheadedness and falling upon standing up. At baseline she ambulates with a walker and has has several falls. This AM the patients daughter observed her to be confused compared to baseline. The daughter reports that the patient has more confusion since . First POC finger stick was 69. EKG NSR with LAD and PRWP across the anterior precordial leads - Past Medical History ECHO TECHNICIAN: Yes: Seizure Cardio/Vascular: Yes: HTN, Hyperlipdemia ...: No Infectious Disease: Yes: Other (recurrent UTI) Musculoskeletal: Yes: Osteoarthritis Endocrine: Yes: Diabetes Mellitus - Past Surgical History Past Surgical History: Yes: Appendectomy, Hysterectomy - Alcohol/Substance Use Hx Alcohol Use: No - Smoking History Smoking history: Never smoked Have you smoked in the past 12 months: No Aproximately how many cigarettes per day: 0 - Social History ADL: Independent History of Recent Travel: No Home Medications - Allergies Allergies/Adverse Reactions: Allergies Allergy/AdvReac Type Severity Reaction Status Date / Time No Known Drug Allergies Allergy Verified 11/15/19 21:14 - Home Medications Home Medications: Ambulatory Orders Acetaminophen 650 mg PO BID PRN 11/29/19 Aspirin 81 mg PO DAILY 11/29/19 Atorvastatin Ca [Lipitor] 20 mg PO HS 11/29/19 Empagliflozin [Jardiance] 10 mg PO DAILY 11/29/19 Folic Acid 1 mg PO DAILY 11/29/19 Gabapentin 300 mg PO DAILY 11/29/19 Linaclotide [Linzess] 72 mcg PO DAILY 11/29/19 Losartan Potassium 100 mg PO DAILY 11/29/19 Metformin HCl [Glucophage] 500 mg PO BID 11/29/19 Methimazole 5 mg PO DAILY 11/29/19 Metoprolol Succinate [Toprol Xl] 50 mg PO DAILY 11/29/19 Multivitamins [Tab-A-Vit -] 1 tab PO DAILY 11/29/19 Pantoprazole Sodium [Protonix -] 20 mg PO DAILY 11/29/19 Paroxetine HCl 10 mg PO DAILY 11/29/19 Sitagliptin Phosphate [Januvia] 50 mg PO DAILY 11/29/19 levETIRAcetam [Levetiracetam ER] 500 mg PO BID 11/29/19 Family Medical History Other Family History: No history of [place], stroke, or cancer in her family that she knows or can remember. Vital Signs: Vital Signs Temperature 98.5 F 12/01/19 09:00 Pulse Rate 69 12/01/19 11:30 Respiratory Rate 12/01/19 09:00 Blood Pressure 131/64 12/01/19 11:30 O2 Sat by Pulse Oximetry (%) 99 12/01/19 09:00 Constitutional: Yes: No Distress, Calm HENT: Yes: WNL Neck: Yes: WNL Respiratory: Yes: WNL Gastrointestinal: Yes: Normal Bowel Sounds Cardiovascular: Yes: Regular Rate and Rhythm JVD: No Edema: No Neurological: Yes: Alert (oriented x2) - Other Data Labs, Other Data: CBC, BMP 11/29/19 14:50 11/29/19 14:50 Assessment/Plan Confusion Mental status change from baseline Frequent falls Unclear if she has a recent LOC Would obtain and document orthostatic blood pressures Would obtain an echocardiogram Continue: Losartan Potassium (Cozaar -) 100 mg PO DAILY Atorvastatin Calcium (Lipitor -) 20 mg PO Metoprolol Succinate (Toprol Xl -) 25 mg PO DAILY
[2019-12-01] MEDS: POLYETHYLENE GLYCOL 3350 119 GM BTL PO SCH (14:30)
[2019-12-01] MEDS: ACETAMINOPHEN 325 MG TABLET (FP) PO PRN (14:46)
--- NOTE | 2019-12-01 17:24 | PN ---
Progress Note (short form) - Note Progress Note: 83 year old female history of seizure, copd, htn, bordering DM, HLD. She is on paxil, gabapentin and keppra Patient has been off seizure medication and now restarted as there wa ssuspician for seizure. Patient has been detiorating slowly and had a fall. There is no fever, seizure or headhace or trauma. Ct head is unreamrakble. Patinet is getting four hour of ADJUNCT HISTORY INSTRUCTOR. Patient has improved, and saw patient in presence of daughter in law. she think it is medication side effect. She has been having hallucinations as well. NEUROLOGICAL EXAMINATION Alert oriented x 1, speech is normal vss, neck is supple eomi, pupils reactive no face asymmetry moving all ext sensation is normal ct head is unremarkable mri of brain and eeg is pending Assessment/Plan Slow detioration of balance and cognitive function, likley to be early dementia and also rule out any stroke and possible worseneing of dementia. Unlikley to be seizure or meningitis Plan: d/c gabapentin - tsh, b12,folate pending - mri of brain and eeg can be done outpatient - waiting for placement - continue keppra for now -consider psych consult Thanking you so much Curtis León MD
[2019-12-01] MEDS: ATORVASTATIN CA 20 MG TABLET (FP) PO SCH (21:20)
--- NOTE | 2019-12-01 21:50 | EKG ---
Test Reason : Blood Pressure : / mmHG Vent. Rate : 064 BPM Atrial Rate : 064 BPM P-R Int : 176 ms QRS Dur : 074 ms QT Int : 408 ms P-R-T Axes : 073 -25 005 degrees QTc Int : 420 ms NORMAL SINUS RHYTHM MODERATE VOLTAGE CRITERIA FOR LVH, MAY BE NORMAL VARIANT NONSPECIFIC T WAVE ABNORMALITY ABNORMAL ECG WHEN COMPARED WITH ECG OF 05-NOV-2019 16:34, NO SIGNIFICANT CHANGE WAS FOUND Confirmed by LV MAGAÑA MD ([id number]) on 12/01/2019 9:50:52 PM Referred By: Confirmed By:LV MAGAÑA MD
[2019-12-01] MEDS ORDERED: DOCUSATE SODIUM 100 MG CAPSULE (FP) PO SCH (22:00)
[2019-12-02] MEDS: INSULIN SLIDING SCALE (NOVOLOG) 1 VIAL SQ SCH ×2 (06:15→12:20)
[2019-12-02] MEDS ORDERED: PT OWN MED DRAWER 7, Y5N ONE (08:59)
[2019-12-02] MEDS: ASPIRIN 81 MG CHEWABLE TABLETS PO SCH (09:08)
[2019-12-02] MEDS: PARoxetine HCL 10 MG TABLET PO SCH (09:08)
[2019-12-02] MEDS: LOSARTAN POTASSIUM 50 MG TABLET (FP) PO SCH (09:08)
[2019-12-02] MEDS: MULTIVITAMINS (DAILY MVI) TABLET (FP) PO SCH (09:08)
[2019-12-02] MEDS: FOLIC ACID 1 MG TABLET (FP) PO SCH (09:08)
[2019-12-02] MEDS: levETIRAcetam XR 500 MG TAB PO SCH (09:12)
[2019-12-02] MEDS: POLYETHYLENE GLYCOL 3350 119 GM BTL PO SCH (09:12)
[2019-12-02] MEDS: HEPARIN NA (PORCINE) 5,000 UNITS/ML 1ML VIAL SQ SCH (09:12)
[2019-12-02] MEDS: PANTOPRAZOLE 20 MG TABLET PO SCH (09:13)
[2019-12-02] MEDS: METHIMAZOLE 5 MG TABLET (FP) PO SCH (09:13)
[2019-12-02] MEDS: ACETAMINOPHEN 325 MG TABLET (FP) PO PRN ×2 (09:15→17:00)
--- NOTE | 2019-12-02 10:14 | DS ---
Physical Examination Vital Signs: Vital Signs Temperature 99.2 F 12/02/19 06:00 Pulse Rate 72 12/02/19 06:00 Respiratory Rate 20 12/02/19 06:00 Blood Pressure 154/87 12/02/19 06:00 O2 Sat by Pulse Oximetry (%) 96 12/02/19 06:00 Findings/Remarks: 83 year old female patient with past medical history that includes History of UTIs, Seizures with last seizure >2 years ago per daughter, COPD, HTN, "borderline diabetes" per family, and HLD, who presented to the ED with AMS and weakness with falling when getting up for the past month or so and getting worse in the past 4 days. The patient's daughter says that about a month and a half ago the patient's doctor nearly doubled the patient's medication list and ever since then the patient has been getting lightheaded and also falling when she gets up. The patient ambulates with a walker, but has recently been getting weaker, which has been making the falls more common. She has fallen and hit her head 2 weeks ago as well as falling and hitting her head 1 week ago. She has a home health aide for 4 hours a day, but otherwise is alone and has to take care of herself. This morning, the patient's daughter observed that the patient was confused, with tremors in her whole body, and telling her in Canadian "I'm too tired. I want to jump out of the window". Due to the patient's confused state and weakness, the patient's daughter brought her to the ED. In the ED, the patient was A&Ox1, later observed to be A&Ox2 a couple hours later. The daughter says that her baseline is A&Ox3 and conversant. The daughter said that she thinks the Januvia is the root cause, as she recalls that her mother was only "borderline diabetes", but now is on 3 diabetes meds. The daughter would also like the patient to have physical therapy and/or rehab due to her weakness. - Problems (1) Altered mental status Assessment/Plan: -At baseline -Knows her name and place -CT head negative -Seen by Neurology -EEG + MRI brain can be done outpatient Problems reviewed: Yes Code(s): R41.82 - ALTERED MENTAL STATUS, UNSPECIFIED Qualifiers: Altered mental status type: transient alteration of awareness Qualified Code(s): R40.4 - Transient alteration of awareness (2) Fall Assessment/Plan: -Physical therapy -Fall precautions Problems reviewed: Yes Code(s): W19.XXXA - UNSPECIFIED FALL, INITIAL ENCOUNTER (3) Dementia without behavioral disturbance Assessment/Plan: -Continue Paxil -No behavioral disturbance noted at the hospital Problems reviewed: Yes Code(s): F03.90 - UNSPECIFIED DEMENTIA WITHOUT BEHAVIORAL DISTURBANCE Assessment/Plan See problem list Spoke to daughter in law Amira, who agrees to pt going to [facility] Constitutional: Yes: Well Nourished, No Distress, Calm Cardiovascular: Yes: Regular Rate and Rhythm Respiratory: Yes: Regular, CTA Bilaterally Gastrointestinal: Yes: Normal Bowel Sounds, Soft Renal/: Yes: Incontinence Musculoskeletal: Yes: Muscle Weakness Extremities: Yes: WNL Edema: No Peripheral Pulses WNL: Yes Neurological: Yes: Alert, Pre-Existing Deficit Psychiatric: Yes: Alert Labs: CBC, BMP 11/29/19 14:50 11/29/19 14:50 Discharge Summary Problems reviewed: Yes Reason For Visit: ALTERED MENTAL STATUS Current Active Problems Altered mental status (Acute) Dementia without behavioral disturbance (Acute) Condition: Stable - Instructions Referrals: Thom Felix MD [Primary Care Provider] - Lisbet Shankar MD [Staff Physician] - Disposition: NURSING HOME FACILITY - Home Medications Comprehensive Discharge Medication List: Ambulatory Orders Aspirin 81 mg PO DAILY 11/29/19 Atorvastatin Ca [Lipitor] 20 mg PO HS 11/29/19 Empagliflozin [Jardiance] 10 mg PO DAILY 11/29/19 Folic Acid 1 mg PO DAILY 11/29/19 Losartan Potassium 100 mg PO DAILY 11/29/19 Metformin HCl [Glucophage] 500 mg PO BID 11/29/19 Methimazole 5 mg PO DAILY 11/29/19 Multivitamins [Multivit ([facility] Formulary)] 1 tab PO DAILY 11/29/19 Pantoprazole Sodium [Protonix -] 20 mg PO DAILY 11/29/19 Paroxetine HCl 10 mg PO DAILY 11/29/19 levETIRAcetam [Levetiracetam ER] 500 mg PO BID 11/29/19 Acetaminophen [Tylenol .Regular Strength -] 650 mg PO Q4H PRN tablet 12/01/19 Heparin - 5,000 unit SQ BID vial 12/01/19 Insulin Sliding Scale [Novolog Vial Sliding Scale -] 0 vial SQ ACHS units 12/01/19 Metoprolol Succinate [Toprol XL -] 25 mg PO DAILY tab.sr.24h 12/01/19 Docusate Sodium [Colace -] 300 mg PO HS capsule 12/02/19 Polyethylene Glycol 3350 [Miralax 119 gm Btl -] 17 gm PO DAILY bottle 12/02/19 Prescription Drug Monitoring Program (I-STOP) results: I-STOP reviewed and no issues identified
[2019-12-02 14:09] VITALS: BP 124/66; PULSE 66; TEMP 98
--- NOTE | 2019-12-02 16:43 | PN ---
Progress Note (short form) - Note Progress Note: 83 year old female history of seizure, copd, htn, bordering DM, HLD. She is on paxil, gabapentin and keppra Patient has been off seizure medication and now restarted as there wa ssuspician for seizure. Patient has been detiorating slowly and had a fall. There is no fever, seizure or headhace or trauma. Ct head is unreamrakble. Patinet is getting four hour of QUALITY CONTROL ENGINEER. Patient has improved, and saw patient in presence of daughter in law. she think it is medication side effect. She has been having hallucinations as well. no new complain NEUROLOGICAL EXAMINATION Alert oriented x 1, speech is normal vss, neck is supple eomi, pupils reactive no face asymmetry moving all ext sensation is normal ct head is unremarkable mri of brain and eeg is pending Assessment/Plan Slow detioration of balance and cognitive function, likley to be early dementia and also rule out any stroke and possible worseneing of dementia. Unlikley to be seizure or meningitis Plan: - mri of brain and eeg can be done outpatient - going to rehab /NH - continue cassie for now Thanking you so much Curtis León MD
== END 2019-12-02 17:30 | DRG 884 ==
LOC: JER 12:59 → JERBED 17:44 → J8W 22:34
PROVIDERS: ADMIT Internal Medicine; ATTEND Family Medicine
DX: F03.90 Unspecified dementia, unspecified severity, without behavioral disturbance, psychotic disturbance, mood disturbance, and anxiety (principal); G93.40 Encephalopathy, unspecified; J44.9 Chronic obstructive pulmonary disease, unspecified; I10 Essential (primary) hypertension; E11.9 Type 2 diabetes mellitus without complications; R56.9 Unspecified convulsions; R29.6 Repeated falls; E78.5 Hyperlipidemia, unspecified; R41.82 Altered mental status, unspecified; R26.81 Unsteadiness on feet
CPT/HCPCS: 36415; 70450-TC; 71045-TC-FY; 80053; 80177; 81003; 82140; 82550; 82607; 82746; 82962; 84443; 84484; 85025; 87086; 93005; 93010; 97116-GP; 97162-GP; 99285-25; J1644; U0003

== ENCOUNTER 2020-03-12 06:01 | Day surgery (SDC) | payer OTHER ==
[2020-03-12] MEDS ORDERED: TRIAMCINOLONE ACET 40MG/1ML VIAL ONE (09:21)
[2020-03-12] MEDS ORDERED: LIDOCAINE HCL 1% PRESERVATIVE FREE - 30ML VIAL IJ ONE (09:25)
[2020-03-12] MEDS ORDERED: TRIAMCINOLONE ACETONIDE 40 MG/ML 10 ML VIAL IJ ONE (09:27)
[2020-03-12] MEDS ORDERED: IOHEXOL 180 MG/1 ML ML IJ ONE (09:27)
[2020-03-12] MEDS ORDERED: BUPIVACAINE HCL/PF 0.5% (5 MG/ML) 30 ML VIAL IJ ONE (09:27)
[2020-03-12 09:50] VITALS: TEMP 97.5
[2020-03-12 10:06] VITALS: BP 153/82; PULSE 82
== END 2020-03-12 10:20 | disposition home or self-care (01) ==
LOC: JASU-SURG 06:01
PROVIDERS: ATTEND Pain Medicine Pain Medicine
PROC: 3E0U3BZ Introduction of Anesthetic Agent into Joints, Percutaneous Approach (ICD-10-PCS; principal; 2020-03-12 09:00)
DX: M16.12 Unilateral primary osteoarthritis, left hip (principal)
CPT/HCPCS: 76000-TC-FY

== ENCOUNTER 2020-04-23 04:29 | Day surgery (SDC) | payer OTHER ==
[2020-04-23] MEDS ORDERED: LIDOCAINE HCL/PF 2% SDV 5ML VIAL ONE (07:42)
[2020-04-23] MEDS ORDERED: LIDOCAINE HCL/PF 1% SDV 5ML VIAL ONE (07:43)
[2020-04-23] MEDS ORDERED: LIDOCAINE HCL 1% PRESERVATIVE FREE - 30ML VIAL IJ ONE (11:18)
[2020-04-23] MEDS ORDERED: IOHEXOL 180 MG/1 ML ML IJ ONE (11:18)
[2020-04-23] MEDS ORDERED: BUPIVACAINE HCL/PF 0.5% (5 MG/ML) 30 ML VIAL IJ ONE (11:20)
[2020-04-23] MEDS ORDERED: TRIAMCINOLONE ACETONIDE 40 MG/ML 10 ML VIAL IJ ONE (11:25)
[2020-04-23 15:08] VITALS: BP 123/78; PULSE 78; TEMP 97.8
== END 2020-04-23 13:45 | disposition home or self-care (01) ==
LOC: JASU-SURG 04:29
PROVIDERS: ATTEND Pain Medicine Pain Medicine
PROC: 3E0U33Z Introduction of Anti-inflammatory into Joints, Percutaneous Approach (ICD-10-PCS; 2020-04-23)
PROC: 3E0U3BZ Introduction of Anesthetic Agent into Joints, Percutaneous Approach (ICD-10-PCS; principal; 2020-04-23 12:00)
DX: M53.3 Sacrococcygeal disorders, not elsewhere classified (principal)
CPT/HCPCS: 76000-TC-FY

== ENCOUNTER 2020-08-27 04:25 | Day surgery (SDC) | payer OTHER ==
[~2020-08-27 04:25] MED LIST changes: +DEXAMETHASONE SOD PHOSPHATE 10 MG/1 ML VIAL IVPUSH ONE; +IOHEXOL 180 MG/1 ML ML IJ ONE; -TOBRAMYCIN/DEXAMETHASONE OPHTH. OINTMENT 1 TUBE TP ONE
[2020-08-27] MEDS ORDERED: LIDOCAINE HCL 1% PRESERVATIVE FREE - 30ML VIAL IJ ONE (13:31)
[2020-08-27] MEDS ORDERED: IOHEXOL 180 MG/1 ML ML IJ ONE (13:33)
[2020-08-27] MEDS ORDERED: DEXAMETHASONE SOD PHOSPHATE 10 MG/1 ML VIAL IVPUSH ONE (13:36)
[2020-08-27 14:24] VITALS: PULSE 78
[2020-08-27 14:50] VITALS: BP 122/71; TEMP 97.4
== END 2020-08-27 14:50 | disposition home or self-care (01) ==
LOC: JASU-SURG 04:25
PROVIDERS: ATTEND Pain Medicine Pain Medicine
PROC: 3E0R33Z Introduction of Anti-inflammatory into Spinal Canal, Percutaneous Approach (ICD-10-PCS; 2020-08-27)
PROC: B01BYZZ Fluoroscopy of Spinal Cord using Other Contrast (ICD-10-PCS; 2020-08-27)
PROC: 3E0R3BZ Introduction of Anesthetic Agent into Spinal Canal, Percutaneous Approach (ICD-10-PCS; principal; 2020-08-27 12:00)
DX: M54.16 Radiculopathy, lumbar region (principal); M48.061 Spinal stenosis, lumbar region without neurogenic claudication
CPT/HCPCS: 76000-TC-FY; 93005; 93010; J1100

== ENCOUNTER 2020-12-31 12:00 | Emergency (ER) | payer OTHER ==
[2020-12-31 12:24] VITALS: BP 152/88; PULSE 84; TEMP 98.3; BMI 23.3
[2020-12-31] MEDS ORDERED: LIDOCAINE 5% TOPICAL PATCH TP ONE (13:11)
[2020-12-31] MEDS ORDERED: ACETAMINOPHEN 500 MG TABLET (FP) PO ONE (13:24)
[2020-12-31] MEDS ORDERED: LIDOCAINE 5% TOPICAL PATCH ONE (15:14)
[2020-12-31] MEDS ORDERED: ACETAMINOPHEN 500 MG TABLET (FP) ONE (15:16)
[2020-12-31] MEDS ORDERED: LIDOCAINE PATCH REMOVAL MC SCH (22:00)
== END 2020-12-31 18:40 | disposition home or self-care (01) ==
LOC: JER 12:00
DX: M54.42 Lumbago with sciatica, left side (principal)
CPT/HCPCS: 72131-TC; 72192-TC; 73523-TC-FY; 74019-TC-FY; 93005; 93010; 99285-25

== ENCOUNTER 2021-05-31 12:37 | Emergency (ER) | payer OTHER ==
[2021-05-31 12:59] VITALS: BP 157/88; PULSE 96; TEMP 98.1; BMI 25.4
[2021-05-31] MEDS ORDERED: LIDOCAINE 5% TOPICAL PATCH TP ONE (14:46)
[2021-05-31] MEDS ORDERED: LIDOCAINE 5% TOPICAL PATCH ONE (14:47)
[2021-06-01] MEDS ORDERED: LIDOCAINE PATCH REMOVAL MC ONE (02:45)
== END 2021-05-31 15:26 | disposition home or self-care (01) ==
LOC: JER 12:37 → JERFT 12:37
DX: R51.9 Headache, unspecified (principal)
CPT/HCPCS: 70450-TC; 72125-TC; 99284-25

== ENCOUNTER 2023-04-23 12:30 | Emergency (ER) | payer OTHER ==
[2023-04-23 13:06] VITALS: BMI 22.6
[2023-04-23] MEDS ORDERED: METHOCARBAMOL 500 MG TABLET PO ONE (13:45)
[2023-04-23] MEDS ORDERED: METHOCARBAMOL 500 MG TABLET ONE (13:52)
[2023-04-23 13:56] LABS: BASO % 0.7 % (0-2.0); EOS % 1.1 % (0-4.5); HEMATOCRIT 41.6 % (32.4-45.2); HEMOGLOBIN 13.6 GM/dL (10.7-15.3); LYMPH % 21.8 % (8-40); MCH 30.9 pg (25.7-33.7); MCHC 32.6 g/dl (32.0-36.0); MEAN CELL VOLUME 94.7 fl (80-96); MONO % 9.6 % (3.8-10.2); NEUT % 66.8 % (42.8-82.8); PLATELET COUNT 160 10^3/uL (134-434); RBC 4.39 M/mm3 (3.60-5.2); RDW 13.3 % (11.6-15.6); WHITE BLOOD COUNT 9.8 K/mm3 (4.0-10.0)
[2023-04-23 14:03] LABS: INR 1.06 (0.83-1.09); PROTHROMBIN TIME (PATIENT) 12.3 SEC (9.7-13.0)
[2023-04-23 14:05] LABS: ACTIVATED PTT 30.9 SECONDS (25.2-36.5)
[2023-04-23 14:38] LABS: ALBUMIN 3.4 g/dl (3.4-5.0); BILIRUBIN,TOTAL 0.4 mg/dL (0.2-1); BLOOD UREA NITROGEN 12.2 mg/dL (7-18); CALCIUM 8.6 mg/dL (8.5-10.1); CREATININE 0.8 mg/dL (0.55-1.3); MAGNESIUM 1.5 mg/dL (1.8-2.4); POTASSIUM 3.8 mmol/L (3.5-5.1); TOT PROT 6.8 g/dl (6.4-8.2)
[2023-04-23 14:58] LABS: URINE APPEARANCE CLEAR; URINE BILIRUBIN NEGATIVE (NEGATIVE); URINE COLOR YELLOW; URINE GLUCOSE (UA) 3+ (NEGATIVE); URINE KETONE NEGATIVE (NEGATIVE); URINE LEUK ESTERASE NEGATIVE (NEGATIVE); URINE NITRITE NEGATIVE (NEGATIVE); URINE PROTEIN NEGATIVE (NEGATIVE); URINE UROBILINOGEN 0.2 mg/dL (0.2-1.0)
[2023-04-23 15:20] VITALS: RESP 20; TEMP 97.3
[2023-04-23] MEDS ORDERED: MAGNESIUM OXIDE 400 MG TABLET (FP) PO ONE (15:32)
[2023-04-23] MEDS ORDERED: MAGNESIUM OXIDE 400 MG TABLET (FP) ONE (15:41)
[2023-04-23 15:43] VITALS: BP 170/94; PULSE 99
== END 2023-04-23 15:44 | disposition home or self-care (01) ==
LOC: JER 12:30
DX: R53.1 Weakness (principal); M25.512 Pain in left shoulder; R11.0 Nausea; Z20.822 Contact with and (suspected) exposure to COVID-19
CPT/HCPCS: 0241U-QW; 36415; 71045-TC-FY; 73030-TC-LT-FY; 80053; 81003; 83735; 84484; 85025; 85610; 85730; 87086; 93005; 93010; 99285-25

== ENCOUNTER 2023-07-15 22:29 | Observation (INO) | payer OTHER ==
[2023-07-15 22:51] VITALS: BMI 20.1
[2023-07-15] MEDS ORDERED: ACETAMINOPHEN INJECTION 100 ML IVPB ONE (23:31)
[2023-07-15] MEDS: ACETAMINOPHEN 1000 MG/100 ML BAG IVPB ONE (23:41)
[2023-07-15 23:50] LABS: BASO % 0.9 % (0-2.0); EOS % 3.3 % (0-4.5); HEMATOCRIT 42.4 % (32.4-45.2); HEMOGLOBIN 14.3 GM/dL (10.7-15.3); LYMPH % 39.2 % (8-40); MCH 31.4 pg (25.7-33.7); MCHC 33.8 g/dl (32.0-36.0); MEAN CELL VOLUME 93.1 fl (80-96); MEAN PLT VOLUME 8.4 fl (7.5-11.1); MONO % 11.5 % (3.8-10.2); NEUT % 45.1 % (42.8-82.8); PLATELET COUNT 156 10^3/uL (134-434); RBC 4.55 M/mm3 (3.60-5.2); RDW 13.6 % (11.6-15.6); WHITE BLOOD COUNT 6.5 K/mm3 (4.0-10.0)
[2023-07-15 23:58] LABS: INR 1.01 (0.83-1.09); PROTHROMBIN TIME (PATIENT) 11.7 SEC (9.7-13.0)
[2023-07-16] LABS: URINE APPEARANCE CLEAR; URINE BILIRUBIN NEGATIVE (NEGATIVE); URINE COLOR YELLOW; URINE GLUCOSE (UA) 2+ (NEGATIVE); URINE KETONE NEGATIVE (NEGATIVE); URINE LEUK ESTERASE NEGATIVE (NEGATIVE); URINE NITRITE NEGATIVE (NEGATIVE); URINE PROTEIN NEGATIVE (NEGATIVE); URINE UROBILINOGEN 0.2 mg/dL (0.2-1.0)
[2023-07-16 00:01] LABS: ACTIVATED PTT 29.2 SECONDS (25.2-36.5)
[2023-07-16] MEDS ORDERED: LISINOPRIL 5 MG TABLET ONE (00:09)
[2023-07-16] MEDS: LISINOPRIL 5 MG TABLET PO ONE (00:09)
[2023-07-16 00:28] LABS: ALBUMIN 3.9 g/dl (3.4-5.0); BILIRUBIN,TOTAL 0.5 mg/dL (0.2-1); CALCIUM 9.5 mg/dL (8.5-10.1); CREATININE 1.4 mg/dL (0.55-1.3); POTASSIUM 4.4 mmol/L (3.5-5.1); TOT PROT 7.6 g/dl (6.4-8.2)
[2023-07-16] MEDS: SODIUM CHLORIDE 0.9% 500 ML INFUS.BAG IV ONE (00:50)
[2023-07-16 06:29] LABS: EOS % 3.3 % (0-4.5); HEMATOCRIT 40.2 % (32.4-45.2); HEMOGLOBIN 13.3 GM/dL (10.7-15.3); LYMPH % 38.2 % (8-40); MCH 31.1 pg (25.7-33.7); MCHC 33.2 g/dl (32.0-36.0); MEAN CELL VOLUME 93.8 fl (80-96); MEAN PLT VOLUME 8.5 fl (7.5-11.1); MONO % 10.3 % (3.8-10.2); NEUT % 47.2 % (42.8-82.8); PLATELET COUNT 150 10^3/uL (134-434); RBC 4.28 M/mm3 (3.60-5.2); RDW 13.3 % (11.6-15.6); WHITE BLOOD COUNT 6.6 K/mm3 (4.0-10.0)
[2023-07-16 06:33] LABS: POTASSIUM 4.3 mmol/L (3.5-5.1)
[2023-07-16 06:44] LABS: CREATININE 1.3 mg/dL (0.55-1.3)
[2023-07-16] MEDS: INSULIN ASPART SLIDING SCALE (NOVOLOG) 1 VIAL SQ SCH (08:01)
[2023-07-16] MEDS: levETIRAcetam 500 MG TABLET (FP) PO SCH (09:45)
[2023-07-16] MEDS: LISINOPRIL 20 MG TABLET PO SCH (09:45)
[2023-07-16] MEDS: MIRTAZAPINE 15 MG TABLET (FP) PO SCH (22:08)
[2023-07-16] MEDS: HEPARIN NA (PORCINE) 5,000 UNITS/ML 1ML VIAL SQ SCH (22:08)
[2023-07-17 00:04] VITALS: RESP 20
[2023-07-17 07:42] LABS: BASO % 0.6 % (0-2.0); EOS % 3.5 % (0-4.5); HEMATOCRIT 39.1 % (32.4-45.2); HEMOGLOBIN 13.3 GM/dL (10.7-15.3); LYMPH % 33.7 % (8-40); MCH 31.6 pg (25.7-33.7); MCHC 34.1 g/dl (32.0-36.0); MEAN CELL VOLUME 92.8 fl (80-96); MONO % 8.9 % (3.8-10.2); NEUT % 53.3 % (42.8-82.8); PLATELET COUNT 153 10^3/uL (134-434); RBC 4.21 M/mm3 (3.60-5.2); RDW 13.3 % (11.6-15.6); WHITE BLOOD COUNT 6.4 K/mm3 (4.0-10.0)
[2023-07-17 07:46] LABS: POTASSIUM 4.1 mmol/L (3.5-5.1)
[2023-07-17 07:57] LABS: CALCIUM 8.2 mg/dL (8.5-10.1)
[2023-07-17 07:58] LABS: ALBUMIN 3.3 g/dl (3.4-5.0); BLOOD UREA NITROGEN 22.7 mg/dL (7-18)
[2023-07-17 08:01] LABS: CREATININE 1.3 mg/dL (0.55-1.3)
[2023-07-17 08:02] LABS: BILIRUBIN,TOTAL 0.5 mg/dL (0.2-1); TOT PROT 6.2 g/dl (6.4-8.2)
[2023-07-17 14:54] VITALS: BP 121/76; PULSE 105; TEMP 97.7
== END 2023-07-17 16:48 | disposition home or self-care (01) ==
LOC: JER 22:29 → JERBED 07-16 01:18 → J4S 07-16 07:02
PROVIDERS: ADMIT Internal Medicine; ATTEND Internal Medicine
PROC: 3E033NZ Introduction of Analgesics, Hypnotics, Sedatives into Peripheral Vein, Percutaneous Approach (ICD-10-PCS; principal; 2023-07-16)
PROC: 3E023GC Introduction of Other Therapeutic Substance into Muscle, Percutaneous Approach (ICD-10-PCS; 2023-07-16)
PROC: 3E0337Z Introduction of Electrolytic and Water Balance Substance into Peripheral Vein, Percutaneous Approach (ICD-10-PCS; 2023-07-16)
DX: I16.0 Hypertensive urgency (principal); N17.9 Acute kidney failure, unspecified; E11.9 Type 2 diabetes mellitus without complications; J44.9 Chronic obstructive pulmonary disease, unspecified; M19.90 Unspecified osteoarthritis, unspecified site; Z87.440 Personal history of urinary (tract) infections; E78.5 Hyperlipidemia, unspecified; Z90.49 Acquired absence of other specified parts of digestive tract; Z90.79 Acquired absence of other genital organ(s); K27.9 Peptic ulcer, site unspecified, unspecified as acute or chronic, without hemorrhage or perforation; G40.909 Epilepsy, unspecified, not intractable, without status epilepticus
CPT/HCPCS: 36415; 70450-TC; 71045-TC-FY; 76775-TC; 80048; 80053; 81003; 82962; 83036; 84443; 84484; 85025; 85610; 85730; 87086; 93005; 93010; 93306-TC; 96372; 96374; 97116-GP; 97161-GP; 99285-25; G0378; J0131; J1644

== ENCOUNTER 2023-09-19 12:28 | Observation (INO) | payer OTHER ==
[2023-09-19 12:51] VITALS: BMI 23.5
[2023-09-19 13:53] LABS: BASO % 0.8 % (0-2.0); EOS % 2.3 % (0-4.5); HEMATOCRIT 39.4 % (32.4-45.2); HEMOGLOBIN 13.1 GM/dL (10.7-15.3); LYMPH % 28.6 % (8-40); MCH 30.9 pg (25.7-33.7); MCHC 33.1 g/dl (32.0-36.0); MEAN CELL VOLUME 93.5 fl (80-96); MEAN PLT VOLUME 7.8 fl (7.5-11.1); MONO % 10.6 % (3.8-10.2); NEUT % 57.7 % (42.8-82.8); PLATELET COUNT 164 10^3/uL (134-434); RBC 4.22 M/mm3 (3.60-5.2); RDW 13.3 % (11.6-15.6); WHITE BLOOD COUNT 7.2 K/mm3 (4.0-10.0)
[2023-09-19 13:59] LABS: INR 0.98 (0.83-1.09); PROTHROMBIN TIME (PATIENT) 11.3 SEC (9.7-13.0)
[2023-09-19 14:00] LABS: PH,URINE 6.5 (5.0-8.0); URINE APPEARANCE CLEAR; URINE BILIRUBIN NEGATIVE (NEGATIVE); URINE COLOR YELLOW; URINE GLUCOSE (UA) 2+ (NEGATIVE); URINE KETONE NEGATIVE (NEGATIVE); URINE LEUK ESTERASE NEGATIVE (NEGATIVE); URINE NITRITE NEGATIVE (NEGATIVE); URINE PROTEIN NEGATIVE (NEGATIVE); URINE UROBILINOGEN 0.2 mg/dL (0.2-1.0)
[2023-09-19 14:02] LABS: ACTIVATED PTT 31.5 SECONDS (25.2-36.5)
[2023-09-19 14:08] LABS: CALCIUM 9.1 mg/dL (8.5-10.1)
[2023-09-19 14:09] LABS: ALBUMIN 3.7 g/dl (3.4-5.0); BLOOD UREA NITROGEN 16.7 mg/dL (7-18)
[2023-09-19 14:14] LABS: BILIRUBIN,TOTAL 0.5 mg/dL (0.2-1); TOT PROT 6.7 g/dl (6.4-8.2)
[2023-09-19 14:17] LABS: N-TERMINAL BNP 248.2 pg/ml (5-450)
[2023-09-19 14:23] LABS: CREATININE 1.1 mg/dL (0.55-1.3)
[2023-09-19] MEDS ORDERED: ACETAMINOPHEN 325 MG TABLET (FP) ONE (15:53)
[2023-09-19] MEDS: ACETAMINOPHEN 325 MG TABLET (FP) PO ONE (15:55)
[2023-09-19] MEDS ORDERED: DOCUSATE SODIUM 100 MG CAPSULE (FP) PO PRN (20:44)
[2023-09-19] MEDS: INSULIN ASPART SLIDING SCALE (NOVOLOG) 1 VIAL SQ SCH (22:09)
[2023-09-19] MEDS: LABETALOL HCL 5 MG/1 ML (100MG/20 ML VIAL) IVPUSH ONE (23:06)
[2023-09-19] MEDS: LABETALOL HCL 20 MG/4 ML VIAL IVPUSH ONE (23:14)
[2023-09-20 07:46] LABS: BASO % 0.7 % (0-2.0); EOS % 2.4 % (0-4.5); HEMATOCRIT 41.1 % (32.4-45.2); HEMOGLOBIN 14.1 GM/dL (10.7-15.3); LYMPH % 28.7 % (8-40); MCH 31.5 pg (25.7-33.7); MCHC 34.3 g/dl (32.0-36.0); MEAN CELL VOLUME 91.8 fl (80-96); MONO % 9.2 % (3.8-10.2); PLATELET COUNT 171 10^3/uL (134-434); RBC 4.47 M/mm3 (3.60-5.2); RDW 13.2 % (11.6-15.6); WHITE BLOOD COUNT 7.6 K/mm3 (4.0-10.0)
[2023-09-20 08:12] LABS: CALCIUM 9.5 mg/dL (8.5-10.1); MAGNESIUM 1.7 mg/dL (1.8-2.4)
[2023-09-20 08:13] LABS: BLOOD UREA NITROGEN 17.8 mg/dL (7-18)
[2023-09-20 08:19] LABS: PHOSPHOROUS 4.3 mg/dL (2.5-4.9)
[2023-09-20] MEDS ORDERED: levETIRAcetam XR 500 MG TAB PO SCH (10:00)
[2023-09-20] MEDS ORDERED: PANTOPRAZOLE 20 MG TABLET PO SCH (10:00)
[2023-09-20] MEDS: LOSARTAN POTASSIUM 50 MG TABLET PO SCH (10:14)
[2023-09-20] MEDS: LISINOPRIL 20 MG TABLET PO SCH (10:14)
[2023-09-20] MEDS: MULTIVITAMINS (DAILY MVI) TABLET (FP) PO SCH (10:14)
[2023-09-20] MEDS: PANTOPRAZOLE 40 MG TABLET PO SCH (10:15)
[2023-09-20] MEDS: levETIRAcetam 500 MG TABLET (FP) PO SCH (10:15)
[2023-09-20] MEDS: METHIMAZOLE 5 MG TABLET PO SCH (10:35)
[2023-09-20] MEDS: MAGNESIUM OXIDE 400 MG TABLET (FP) PO ONE (14:15)
[2023-09-20 14:26] VITALS: RESP 18
[2023-09-20] MEDS ORDERED: MIRTAZAPINE 15 MG TABLET (FP) ONE (22:23)
[2023-09-20] MEDS: ATORVASTATIN CA 40 MG TABLET (FP) PO SCH (22:24)
[2023-09-20] MEDS: FAMOTIDINE 10 MG TABLET PO SCH (22:24)
[2023-09-20] MEDS: MIRTAZAPINE 30 MG TABLET PO SCH (22:25)
[2023-09-21 08:17] LABS: N-TERMINAL BNP 295.2 pg/ml (5-450)
[2023-09-21] MEDS ORDERED: INSULIN ASPART SLIDING SCALE (NOVOLOG) 1 VIAL SQ ONE (11:12)
[2023-09-21 14:47] VITALS: BP 130/73; PULSE 78; TEMP 98.1
== END 2023-09-21 15:32 | disposition home health service (06) ==
LOC: JER 12:28 → JERBED 18:41 → J4S 20:14
PROVIDERS: ADMIT Internal Medicine; ATTEND Internal Medicine
PROC: 3E033GC Introduction of Other Therapeutic Substance into Peripheral Vein, Percutaneous Approach (ICD-10-PCS; principal; 2023-09-19)
PROC: 3E013VG Introduction of Insulin into Subcutaneous Tissue, Percutaneous Approach (ICD-10-PCS; 2023-09-19)
DX: N39.0 Urinary tract infection, site not specified (principal); I10 Essential (primary) hypertension; E78.5 Hyperlipidemia, unspecified; E11.9 Type 2 diabetes mellitus without complications; J44.9 Chronic obstructive pulmonary disease, unspecified; R56.9 Unspecified convulsions; M19.90 Unspecified osteoarthritis, unspecified site; K27.9 Peptic ulcer, site unspecified, unspecified as acute or chronic, without hemorrhage or perforation; Z87.440 Personal history of urinary (tract) infections; Z90.49 Acquired absence of other specified parts of digestive tract; Z90.79 Acquired absence of other genital organ(s)
CPT/HCPCS: 0241U-QW; 36415; 71045-TC-FY; 80048; 80053; 80061; 81003; 82962; 83735; 83880; 84100; 84439; 84443; 84484; 85025; 85610; 85730; 86850; 86900; 86901; 87086; 87186; 93005; 93010; 97116-GP; 97161-GP; 99285-25; G0378